=== PATIENT | female | born 1955 | race Caucasian/White ===

== ENCOUNTER → 2019-07-11 09:37 | Outpatient (BNVA) | payer MEDICARE, BC, SELFPAY | PROVIDERS: Family Provider Family Medicine; PCP Internal Medicine Medical Oncology; Visit Provider Internal Medicine Medical Oncology | DX: E83.119 Hemochromatosis, unspecified (principal) | CPT/HCPCS: 85025 ==

== ENCOUNTER 2019-07-12 13:52 | Outpatient (CLI) | payer MEDICARE, BC, SELFPAY | END 2019-07-12 13:53 | disposition home or self-care (01) | LOC: ONCMED 13:52 | PROVIDERS: Family Provider Family Medicine; PCP Nurse Practitioner Family; Visit Provider Internal Medicine Medical Oncology | DX: E83.119 Hemochromatosis, unspecified (principal) | CPT/HCPCS: 99195; 99211 ==

== ENCOUNTER → 2019-08-07 10:24 | Outpatient (BNVA) | payer MEDICARE, BC, SELFPAY | PROVIDERS: Family Provider Family Medicine; PCP Nurse Practitioner Family; Visit Provider Internal Medicine Medical Oncology | DX: Z51.81 Encounter for therapeutic drug level monitoring (principal); E78.5 Hyperlipidemia, unspecified; E83.119 Hemochromatosis, unspecified | CPT/HCPCS: 80053; 80061; 82728; 83540; 83550; 85025 ==

== ENCOUNTER 2019-08-09 13:34 | Outpatient (CLI) | payer MEDICARE, BC, SELFPAY | END 2019-08-09 13:35 | disposition home or self-care (01) | LOC: ONCMED 13:34 | PROVIDERS: Family Provider Family Medicine; PCP Nurse Practitioner Family; Visit Provider Internal Medicine Medical Oncology | DX: E83.119 Hemochromatosis, unspecified (principal) | CPT/HCPCS: 99195; 99211 ==

== ENCOUNTER → 2019-08-17 11:48 | Outpatient (BNVA) | payer MEDICARE, BC, SELFPAY | PROVIDERS: Family Provider Family Medicine; PCP Nurse Practitioner Family; Visit Provider Emergency Medicine | DX: M79.644 Pain in right finger(s) (principal) | CPT/HCPCS: 73130 ==

== ENCOUNTER → 2019-09-04 10:08 | Outpatient (BNVA) | payer MEDICARE, BC, SELFPAY | PROVIDERS: Family Provider Family Medicine; PCP Nurse Practitioner Family; Visit Provider Family Medicine | DX: E83.119 Hemochromatosis, unspecified (principal) | CPT/HCPCS: 82728; 83540; 83550; 85025 ==

== ENCOUNTER 2019-09-06 13:39 | Outpatient (CLI) | payer MEDICARE, BC, SELFPAY | END 2019-09-06 13:40 | disposition home or self-care (01) | LOC: ONCMED 13:43 | PROVIDERS: Family Provider Family Medicine; PCP Nurse Practitioner Family; Visit Provider Internal Medicine Medical Oncology | DX: E83.110 Hereditary hemochromatosis (principal) | CPT/HCPCS: 99195; 99211 ==

== ENCOUNTER → 2019-10-24 09:36 | Outpatient (BNVA) | payer MEDICARE, BC, SELFPAY | PROVIDERS: Family Provider Family Medicine; PCP Nurse Practitioner Family; Visit Provider Family Medicine | DX: E87.1 Hypo-osmolality and hyponatremia (principal) | CPT/HCPCS: 80048; 82533; 83935; 84300; 84439; 84443 ==

== ENCOUNTER → 2019-11-01 10:36 | Outpatient (BNVA) | payer MEDICARE, BC, SELFPAY | PROVIDERS: Family Provider Family Medicine; PCP Nurse Practitioner Family; Visit Provider Nurse Practitioner Family | DX: E87.1 Hypo-osmolality and hyponatremia (principal) | CPT/HCPCS: 80061; 83883; 84155; 84165 ==

== ENCOUNTER → 2019-11-06 10:37 | Outpatient (BNVA) | payer MEDICARE, BC, SELFPAY | PROVIDERS: Family Provider Family Medicine; PCP Nurse Practitioner Family; Referring Provider Internal Medicine Medical Oncology; Visit Provider Internal Medicine Medical Oncology | DX: E83.119 Hemochromatosis, unspecified (principal) | CPT/HCPCS: 80053; 82728; 83550; 85025 ==

== ENCOUNTER 2019-11-08 13:46 | Outpatient (CLI) | payer MEDICARE, BC, SELFPAY | END 2019-11-08 13:47 | disposition home or self-care (01) | LOC: ONCMED 13:52 | PROVIDERS: PCP Nurse Practitioner Family; Visit Provider Internal Medicine Medical Oncology | DX: E83.110 Hereditary hemochromatosis (principal); M79.7 Fibromyalgia; K21.9 Gastro-esophageal reflux disease without esophagitis; M10.9 Gout, unspecified; I10 Essential (primary) hypertension; M19.90 Unspecified osteoarthritis, unspecified site | CPT/HCPCS: 99195; 99211 ==

== ENCOUNTER → 2020-01-10 10:39 | Outpatient (BNVA) | payer MEDICARE, BC, SELFPAY | PROVIDERS: PCP Nurse Practitioner Family; Referring Provider Internal Medicine Medical Oncology; Visit Provider Internal Medicine Medical Oncology | DX: E83.119 Hemochromatosis, unspecified (principal) | CPT/HCPCS: 80053; 82728; 83550; 85025 ==

== ENCOUNTER 2020-01-11 13:44 | Outpatient (CLI) | payer MEDICARE, BC, SELFPAY ==
--- NOTE | 2020-01-11 17:16 | ONC FU_ITS ---
Dr. Rock Patient Follow-Up Note Patient: Soumya Freed Unit #: [id number]: 1955 Dicatated By: Jorge Rock M.D.Date of Visit:Jan 11, 2020 Onc Med Follow-up/Prog Note Chief Complaint: Hemochromatosis. History of Present Illness: This is a 64 year-old woman who with hereditary hemochromatosis. She had serum iron studies in March 2018 after her brother and her sister had been diagnosed with hereditary hemochromatosis. Her serum iron was found to be elevated at 206 mcg/dL. Her transferrin saturation calculated to 74%. She was seen here by Dr. Peña on 04/14/2018. 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 I had seen her initially on 05/09/2018. She then started on phlebotomy program, initially on an every 2 month schedule. As of her follow-up visit on 11/03/2018 her serum ferritin was still elevated at 275 ng/mL, and at that point I did have her increase the frequency of her phlebotomies to monthly. Her other medical illnesses include hypertension, GERD, fibromyalgia, degenerative arthritis, and gout. She also has a diagnosis of cluster headaches. She is a nonsmoker. INTERIM HISTORY: As of October 2019 her repeat transferrin saturation was down to 52.9% and her ferritin had decreased to 64 ng/mL. At that point she did stop phlebotomies. She is seen for a scheduled followup visit. She has been feeling okay. She says her energy is getting better. She does have limited activity due to chronic pain in the back and right hip. She is able to do light work. ECOG score is 1. She has good appetite. She has not had fever. She sometimes has hot flashes at night. Her main complaint is that she has been having cluster headaches. She has been seeing a physician in [place] and she has been on treatment with injectable medication. She has had pain in her legs associated with the injection, but it has improved the headaches. She has no shortness of breath, cough, or chest pain. She has no GI/ complaints other than her stools tend to fluctuate between runny and hard. She has no focal neurologic symptoms. Medications: Acetaminophen-Codeine 1 - 2 (300-60 mg) Tablet Oral q 4 to 6 hours PRN, ALPRAZolam 1 Tablet (of 0.5 mg) Oral b.i.d., Cetirizine HCl 1 Tablet (of 10 mg) Oral daily, Colestipol HCl 1 Tablet (of 1 G) Oral b.i.d., Dicyclomine HCl 1 Tablet (of 20 mg) Oral four times a day, Esomeprazole Magnesium 1 Capsule (of 40 mg) Capsule Delayed Release Oral daily, Excedrin Extra Strength 1 Capsule (of 250-250-65 mg) Tablet Oral PRN, Losartan Potassium 1 Tablet (of 50 mg) Oral daily, Meloxicam 1 Tablet (of 15 mg) Oral daily, Simvastatin 1 Tablet (of 40 mg) Oral daily, Venlafaxine HCl ER 1 Tablet (of 75 mg) Tablet SR 24 HR Oral daily, Verapamil HCl ER 1 Capsule (of 240 mg) Capsule SR 24 HR Oral daily Allergies: Morphine Sulfate Review of Systems: Constitutional - She is feeling okay Her energy is getting better. She is able to do light work. Appetite is good and weight is stable. No fever or night sweats. She sometimes has hot flashes at night. ECOG score is 1, ENMT - She has a little sinus drainage. No mouth sores. She has pain in her right ear and throat with her heacaches. No difficulty swallowing, Hematologic/Lymphatic - No abnormal bruising or bleeding, Respiratory - No shortness of breath. No cough. No pleuritic pain or hemoptysis, Cardiovascular - No angina pain. No palpitations, Gastrointestinal - No nausea or vomiting. Her acid reflux is adequately managed with medication. Her stools are either runny or hard. No blood in the stool or black stools, Genitourinary (F) - No dysuria or hematuria. No urinary frequency. No urgency or incontinence, Musculoskeletal - She has back pain, and she also has pain in her right leg, Integumentary - No skin rash, Neurologic - She has cluster headaches. No dizziness. No numbness or tingling. No other focal neurologic symptoms, Psychiatric - Her anxiety/depression is adequately managed with medication. No insomnia. Vital Signs: Performed on Jan 11, 2020 14:06 Height - 63.00 in Weight - 144.8 lbs (LOW) BSA - 1.69 sq.m BMI - 25.65 Temperature - 98.2 F (LOW) Pulse - 58 /min (LOW) Respiration - 24 /min BP - 190/74 mm(hg) (HIGH) O2 Sat - 98 % Pain - 2 Physical Examination: Constitutional - She looks pretty good generally, Eyes - Sclerae nonicteric. Conjunctivae clear, ENMT - No lesions noted in the oral cavity, Hematologic/Lymphatic - No cervical, clavicular, or axillary adenopathy, Respiratory - Lungs are clear with good air movement bilaterally, Cardiovascular - Heart rhythm is regular. There is no murmur, gallop, or rub noted, Abdomen - Soft and non-tender. Liver and spleen are not enlarged. There is no abdominal mass or ascites noted and there is no inguinal adenopathy, Extremities - No edema, Neurologic - No focal neurologic deficits noted. Lab/Imaging: CBC shows hemoglobin 14.4 g, white blood cell count 5800, and platelet count 252,000. Comprehensive metabolic profile is unremarkable. The serum iron studies show elevated transferrin saturation at 82.%. The ferritin has increased to 84 ng/mL. Impression: 1. Patient with hereditary hemochromatosis. 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 2. She had just mildly elevated transferrin saturation and serum ferritin at initial diagnosis. Her other medical illnesses include: 3. Hypertension. 4. GERD. 5. Fibromyalgia. 6. Degenerative arthritis. 7. Gout. In April 2018 she began on a phlebotomy program, intially on an every 2 month schedue. She has tolerated it well, but as of October 2018 there was just a modest decline in her serum ferritin level, to 275 ng/mL compared to a baseline level of 336 ng/mL. Her transferrin saturation was basically stable. At that point I had increased the frequency of her phlebotomies to monthly, but she tolerated it poorly. Her phlebotomies were then changed to 1/2 unit monthly, and she was then able to tolerate it much better. As of October 2019 her transferrin saturation had decreased to 52.9% and her ferritin was down to 64 ng/mL. She had then stopped phlebotomies. Her transferrin saturation and ferritin have now both increased. Plan: She will restart treatment with 1/2 unit phlebotomy monthly. I will see her again with repeat serum iron studies and ferritin in 6 months. Signed By: Jorge Rock M.D. <<Signature on File>>
== END 2020-01-11 13:45 | disposition home or self-care (01) ==
LOC: ONCMED 13:50
PROVIDERS: PCP Nurse Practitioner Family; Visit Provider Internal Medicine Medical Oncology
DX: E83.110 Hereditary hemochromatosis; I10 Essential (primary) hypertension; K21.9 Gastro-esophageal reflux disease without esophagitis; M79.7 Fibromyalgia; M19.90 Unspecified osteoarthritis, unspecified site; M10.9 Gout, unspecified
CPT/HCPCS: 36415; 99195; 99214

== ENCOUNTER → 2020-02-06 09:02 | Outpatient (BNVA) | payer MEDICARE, BC, SELFPAY | PROVIDERS: PCP Nurse Practitioner Family; Referring Provider Internal Medicine; Visit Provider Internal Medicine | DX: E87.1 Hypo-osmolality and hyponatremia (principal) | CPT/HCPCS: 80048; 80069; 82533; 83930; 83935; 84300; 84439; 84443 ==

== ENCOUNTER → 2020-02-12 10:36 | Outpatient (BNVA) | payer MEDICARE, BC, SELFPAY | PROVIDERS: PCP Nurse Practitioner Family; Visit Provider Internal Medicine Medical Oncology | DX: E83.119 Hemochromatosis, unspecified (principal) | CPT/HCPCS: 82728; 83550; 85025 ==

== ENCOUNTER 2020-02-13 14:01 | Outpatient (CLI) | payer MEDICARE, BC, SELFPAY | END 2020-02-13 14:02 | disposition home or self-care (01) | LOC: ONCMED 14:04 | PROVIDERS: PCP Nurse Practitioner Family; Visit Provider Internal Medicine Medical Oncology | DX: E83.110 Hereditary hemochromatosis (principal) | CPT/HCPCS: 99195 ==

== ENCOUNTER → 2020-03-13 09:02 | Outpatient (BNVA) | payer MEDICARE, BC, SELFPAY | PROVIDERS: PCP Nurse Practitioner Family; Referring Provider Internal Medicine Medical Oncology; Visit Provider Internal Medicine Medical Oncology | DX: E83.119 Hemochromatosis, unspecified (principal) | CPT/HCPCS: 85025 ==

== ENCOUNTER 2020-03-14 13:53 | Outpatient (CLI) | payer MEDICARE, BC, SELFPAY | END 2020-03-14 13:54 | disposition home or self-care (01) | PROVIDERS: PCP Nurse Practitioner Family; Visit Provider Internal Medicine Medical Oncology | DX: E83.110 Hereditary hemochromatosis (principal) | CPT/HCPCS: 99195 ==

== ENCOUNTER → 2020-04-22 09:03 | Outpatient (BNVA) | payer MEDICARE, BC, SELFPAY | PROVIDERS: PCP Nurse Practitioner Family; Referring Provider Internal Medicine Medical Oncology; Visit Provider Internal Medicine Medical Oncology | DX: E83.119 Hemochromatosis, unspecified (principal) | CPT/HCPCS: 85007; 85027 ==

== ENCOUNTER → 2020-05-08 09:25 | Outpatient (BNVA) | payer MEDICARE, BC, SELFPAY | PROVIDERS: PCP Nurse Practitioner Family; Visit Provider Internal Medicine Medical Oncology | DX: E83.110 Hereditary hemochromatosis (principal) | CPT/HCPCS: 85025 ==

== ENCOUNTER 2020-05-09 13:50 | Outpatient (CLI) | payer MEDICARE, BC, SELFPAY | END 2020-05-09 13:51 | disposition home or self-care (01) | LOC: ONCMED 13:55 | PROVIDERS: PCP Nurse Practitioner Family; Visit Provider Internal Medicine Medical Oncology | DX: E83.110 Hereditary hemochromatosis (principal) | CPT/HCPCS: 99195 ==

== ENCOUNTER → 2020-06-05 08:56 | Outpatient (BNVA) | payer MEDICARE, BC, SELFPAY | PROVIDERS: PCP Nurse Practitioner Family; Referring Provider Internal Medicine Medical Oncology; Visit Provider Internal Medicine Medical Oncology | DX: E83.110 Hereditary hemochromatosis (principal) | CPT/HCPCS: 85025 ==

== ENCOUNTER 2020-06-06 13:41 | Outpatient (CLI) | payer MEDICARE, BC, SELFPAY | END 2020-06-06 13:42 | disposition home or self-care (01) | LOC: ONCMED 13:46 | PROVIDERS: PCP Nurse Practitioner Family; Visit Provider Internal Medicine Medical Oncology | DX: E83.110 Hereditary hemochromatosis (principal) | CPT/HCPCS: 99195 ==

== ENCOUNTER → 2020-06-25 09:10 | Outpatient (BNVA) | payer MEDICARE, BC, SELFPAY | PROVIDERS: PCP Nurse Practitioner Family; Referring Provider Internal Medicine; Visit Provider Internal Medicine | DX: E87.1 Hypo-osmolality and hyponatremia (principal) | CPT/HCPCS: 80069; 83930; 83935; 84300 ==

== ENCOUNTER → 2020-07-10 09:11 | Outpatient (BNVA) | payer MEDICARE, BC, SELFPAY | PROVIDERS: PCP Nurse Practitioner Family; Referring Provider Internal Medicine Medical Oncology; Visit Provider Internal Medicine Medical Oncology | DX: E83.110 Hereditary hemochromatosis (principal) | CPT/HCPCS: 85025 ==

== ENCOUNTER 2020-07-11 13:40 | Outpatient (CLI) | payer MEDICARE, BC, SELFPAY ==
--- NOTE | 2020-07-12 15:38 | ONC FU_ITS ---
Dr. Rock Patient Follow-Up Note Patient: Soumya Freed Unit #: [id number]: 1955 Dicatated By: Jorge Rock M.D.Date of Visit:Jul 11, 2020 Onc Med Follow-up/Prog Note Chief Complaint: Hemochromatosis. History of Present Illness: This is a 64 year-old woman who with hereditary hemochromatosis. She had serum iron studies in March 2018 after her brother and her sister had been diagnosed with hereditary hemochromatosis. Her serum iron was found to be elevated at 206 mcg/dL. Her transferrin saturation calculated to 74%. She was seen here by Dr. Peña on 04/14/2018. 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 I had seen her initially on 05/09/2018. She then started on phlebotomy program, initially on an every 2 month schedule. As of her follow-up visit on 11/03/2018 her serum ferritin was still elevated at 275 ng/mL, and at that point I did have her increase the frequency of her phlebotomies to monthly. Her other medical illnesses include hypertension, GERD, fibromyalgia, degenerative arthritis, and gout. She also has a diagnosis of cluster headaches. She is a nonsmoker. INTERIM HISTORY: As of October 2019 her repeat transferrin saturation was down to 52.9% and her ferritin had decreased to 64 ng/mL, and I did stop her phlebotomies. However, in December 2019 she restarted 1/2 unit phlebotomies monthly with her transferrin saturation increased to 82% and her serum ferritin increased to 84 ng/mL. She is seen for a scheduled followup visit. She has not been feeling good. She says her energy has been horrible and she has been tired all the time. She is still doing some light work. ECOG score is 1. She has good appetite. She has not had fever. She occasionally has hot flashes. Her main complaint otherwise is that her pain is getting worse. She indicates that she has had to previous back surgeries and she had a right total hip arthroplasty 2 years ago. She is always had s a little back pain, but that has gotten significantly worse, and she also has been having pain intermittently in her right groin area. She was having headaches, but does have improved. She does not complain of shortness of breath, cough, or chest pain. She has ongoing problems with constipation. She is scheduled to see her artificial breast fabricator next month. Bladder function has been okay. She has no focal neurologic symptoms. Medications: Acetaminophen-Codeine 1 - 2 (300-60 mg) Tablet Oral q 4 to 6 hours PRN, ALPRAZolam 1 Tablet (of 0.5 mg) Oral b.i.d., Cetirizine HCl 1 Tablet (of 10 mg) Oral daily, Colestipol HCl 1 Tablet (of 1 G) Oral b.i.d., Dicyclomine HCl 1 Tablet (of 20 mg) Oral four times a day, Esomeprazole Magnesium 1 Capsule (of 40 mg) Capsule Delayed Release Oral daily, Excedrin Extra Strength 1 Capsule (of 250-250-65 mg) Tablet Oral PRN, Losartan Potassium 1 Tablet (of 50 mg) Oral daily, Meloxicam 1 Tablet (of 15 mg) Oral daily, Simvastatin 1 Tablet (of 40 mg) Oral daily, Venlafaxine HCl ER 1 Tablet (of 75 mg) Tablet SR 24 HR Oral daily, Verapamil HCl ER 1 Capsule (of 240 mg) Capsule SR 24 HR Oral daily Allergies: Morphine Sulfate Vital Signs: Performed on Jul 11, 2020 14:17 Height - 63.00 in Weight - 156 lbs (HIGH) BSA - 1.74 sq.m BMI - 27.63 Temperature - 98.2 F (LOW) Pulse - 74 /min Respiration - 16 /min BP - 176/69 mm(hg) (HIGH) O2 Sat - 99 % Pain - 6 Physical Examination: Constitutional - She looks pretty good generally, Eyes - Sclerae nonicteric. Conjunctivae clear, ENMT - No lesions noted in the oral cavity, Hematologic/Lymphatic - No cervical, clavicular, or axillary adenopathy, Respiratory - Lungs are clear with good air movement bilaterally, Cardiovascular - Heart rhythm is regular. There is no murmur, gallop, or rub noted, Abdomen - Soft and non-tender. Liver and spleen are not enlarged. There is no abdominal mass or ascites noted and there is no inguinal adenopathy, Extremities - No edema, Neurologic - No focal neurologic deficits noted. Lab/Imaging: Test performed on Jul 10, 2020 08:17 WBC 6.1 10^9/L RBC 4.06 10^12/L HGB 10.4 g/dL HCT 34.1 % MCV 84 fl MCH 25.6 pg MCHC 30.5 g/dL RDW 12.8 % Platelet Count 285 10^9/L Neutrophils (Gran) 2.6 10^9/L Lymphocytes 2.6 10^9/L Monocytes 0.6 10^9/L Eosinophils 0.2 10^9/L Basophils 0.1 10^9/L Problem List: 1. Patient with hereditary hemochromatosis. 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 She had just mildly elevated transferrin saturation and serum ferritin at initial diagnosis. 2. She began on a phlebotomy program in April 2018. 3. Hypertension. 4. GERD. 5. Fibromyalgia. 6. Degenerative arthritis. 7. Gout. Problems Addressed with this Encounter and Plan: 1. Patient with hereditary hemochromatosis. 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 She had just mildly elevated transferrin saturation and serum ferritin at initial diagnosis. In December 2019 she had restarted 1/2 unit phlebotomies monthly due to an increase in her transferrin saturation and ferritin level. She comes in now feeling significantly more fatigued. She has become mildly anemic. Her serum iron studies were not done, but I suspect that she has become iron deficient, as there has also been a decrease in her MCV down to the low normal range. As such, I will have her start taking a multivitamin with iron. I will see her again with repeat CBC and serum iron studies in 3 months. 2. She has ongoing problems with constipation. She is scheduled to see her artificial breast fabricator next month. In the meantime, she is given instructions to try senna/docusate 2 tablets twice daily and to use her lactulose as needed if she has had no bowel movement in 3 days. Signed By: Jorge Rock M.D. <<Signature on File>>
== END 2020-07-11 13:41 | disposition home or self-care (01) ==
LOC: ONCMED 13:45
PROVIDERS: PCP Nurse Practitioner Family; Visit Provider Internal Medicine Medical Oncology
DX: E83.110 Hereditary hemochromatosis (principal); R53.83 Other fatigue; D64.9 Anemia, unspecified; K59.00 Constipation, unspecified
CPT/HCPCS: 99214

== ENCOUNTER → 2020-08-09 08:43 | Outpatient (BNVA) | payer MEDICARE, BC, SELFPAY | PROVIDERS: PCP Nurse Practitioner Family; Referring Provider Internal Medicine; Visit Provider Internal Medicine | DX: E87.1 Hypo-osmolality and hyponatremia (principal) | CPT/HCPCS: 80069 ==

== ENCOUNTER → 2020-10-17 08:42 | Outpatient (BNVA) | payer MEDICARE, BC, SELFPAY | PROVIDERS: PCP Nurse Practitioner Family; Visit Provider Internal Medicine Medical Oncology | DX: E83.110 Hereditary hemochromatosis (principal) | CPT/HCPCS: 80053; 82728; 83550; 85025 ==

== ENCOUNTER 2020-10-23 10:55 | Outpatient (CLI) | payer MEDICARE, BC, SELFPAY ==
--- NOTE | 2020-11-04 22:02 | ONC FU_ITS ---
[facility] Patient Note Patient: Soumya Freed Unit #: [id number]: 1955 Dictated By: Lida ScottDate of Visit: October 23, 2020 Onc MED Follow-Up/Prog Note Chief Complaint: Hemochromatosis. History of Present Illness: Ms Freed is a 64 year-old woman who with hereditary hemochromatosis. She had serum iron studies in March 2018 after her brother and her sister had been diagnosed with hereditary hemochromatosis. Her serum iron was found to be elevated at 206 mcg/dL. Her transferrin saturation calculated to 74%. She was seen here by Dr. Peña on 04/14/2018. 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 Dr Rock had seen her initially on 05/09/2018. She then started on phlebotomy program, initially on an every 2 month schedule. As of her follow-up visit on 11/03/2018 her serum ferritin was still elevated at 275 ng/mL, and at that point I did have her increase the frequency of her phlebotomies to monthly. Her other medical illnesses include hypertension, GERD, fibromyalgia, degenerative arthritis, and gout. She also has a diagnosis of cluster headaches. She is a nonsmoker. INTERIM HISTORY: As of October 2019 her repeat transferrin saturation was down to 52.9% and her ferritin had decreased to 64 ng/mL, and Dr Rock did stop her phlebotomies. However, in December 2019 she restarted 1/2 unit phlebotomies monthly with her transferrin saturation increased to 82% and her serum ferritin increased to 84 ng/mL. Mrs Freed is here today for follow-up. She states overall she is doing well. She has started watching her diet a lot close. She states that she is doing a gluten and lactose-free diet and has been for approximately 2 weeks and states that she is already feeling much better. She reports she had her second Covid vaccine and had diarrhea for 48 hours but after that it resolved and she is had no other issues. She denies any fever or chills. She is had no worsening of her night sweats. She states she feels good overall. She denies any mouth sores, sore throat or difficulty swallowing. She said no shortness of breath orthopnea. She denies cough and hemoptysis. She denies any nausea or vomiting. Her bowel and bladder are normal for her. She denies any peripheral neuropathy. Her ECOG is 1. Past Medical History: Degenerative arthritis Fibromyalgia Gastroesophageal reflux disease Gout Hypertension Past Surgical History: Appendectomy Bladder sling Cholecystectomy Hysterectomy Laminectomy Thumb repair Covid vaccine #2 in 2020 Covid vaccine #1 in 2020 Right hip relacement in 2019 Allergies: Morphine Sulfate Medications: Acetaminophen-Codeine 1 - 2 (300-60 mg) Tablet Oral q 4 to 6 hours PRN ALPRAZolam 1 Tablet (of 0.5 mg) Oral b.i.d. Bystolic (5 mg) Tablet Oral daily Cetirizine HCl 1 Tablet (of 10 mg) Oral daily Colestipol HCl 1 Tablet (of 1 G) Oral b.i.d. Dicyclomine HCl 1 Tablet (of 20 mg) Oral four times a day Esomeprazole Magnesium 1 Capsule (of 40 mg) Capsule Delayed Release Oral daily Excedrin Extra Strength 1 Capsule (of 250-250-65 mg) Tablet Oral PRN Lisinopril (20 mg) Tablet Oral b.i.d. Meloxicam 1 Tablet (of 15 mg) Oral daily Simvastatin 1 Tablet (of 40 mg) Oral daily Family History: Ms. Freed's mother at age 91: congestive heart failure, and breast cancer. Ms. Freed's father at age 84: prostate cancer. Ms. Freed has 2 brothers: 1 alive, 1 . Ms. Freed's first brother's hemachromatosis. Another brother's renal failure. She has 3 sisters: 3 alive. Ms. Freed's first sister's heart disease. Social History: Ms. Freed is and she is a disabled. Ms. Freed has never smoked. She has no history of drinking. Review Of Symptoms: <See Above> Vital Signs: Performed on October 23, 2020 12:35 Height - 63.00 in Weight - 147.6 lbs (LOW) BSA - 1.70 sq.m BMI - 26.15 Temperature - 97.7 F (LOW) Pulse - 53 /min (LOW) Respiration - 18 /min BP - 145/72 mm(hg) (HIGH) O2 Sat - 97 % Pain - 7 Fatigue - 7,1 - No physically strenuous activity, but ambulatory and able to carry out light or sedentary work (e.g. office work, light house work). (ECOG) Physical Examination: Constitutional Alert, oriented, no acute distress. Skin pink, warm and dry. Head Normocephalic; atraumatic. Eyes Conjunctivae and sclerae are clear and without icterus. Pupils are reactive and equal. Neck Supple without masses or thyromegaly. No jugular venous distension. Hematologic/Lymphatic No petechiae or purpura. No tender or palpable lymph nodes in the cervical or supraclavicular areas. Respiratory Lungs are clear to auscultation without rhonchi or wheezing. Cardiovascular Regular rate and rhythm of heart without murmurs,clicks, gallops or rubs. Abdomen Non-tender, non-distended, no masses or ascites. Good bowel sounds noted in all quads. No guarding or rebound tenderness. No pulsatile masses. Back/Spine Non-tender to palpation. Extremities No visible deformities, no cyanosis, clubbing or edema. Musculoskeletal No tenderness or swelling, normal range of motion without obvious weakness. Integumentary No rashes or lesions. Neurologic No sensory or motor deficits, normal cerebellar function, normal gait. Psychiatric Alert and oriented times three. Coherent speech. Verbalizes understanding of our discussions today. Laboratory:Test performed on Oct 17, 2020 08:42 Ferritin 14 ng/mL % Iron Saturation 8.7 % Glucose 280 mg/dL BUN 6 mg/dL Iron, Total 27 mcg/dL Creatinine 0.7 mg/dL TIBC 308 mcg/dL Cr Clearance (Est) 83.5600 mL/min Sodium 135 mmol/L Potassium 4.1 mmol/L Chloride 100 mmol/L CO2 24 mmol/L Calcium 8.8 mg/dL Protein, Total 6.1 g/dL Albumin 4.1 g/dL Globulin 2.0 g/dL Bilirubin, Total 0.2 mg/dL Alkaline Phosphatase 66 IU/L AST (SGOT) 12 IU/L ALT (SGPT) 7 IU/L WBC 4.7 10^9/L RBC 4.74 10^12/L HGB 11.0 g/dL HCT 36.6 % MCV 77.2 fl MCH 23.2 pg MCHC 30.1 g/dL RDW 16.3 % Platelet Count 246 10^9/L MPV 12.2 fL Neutrophils (Gran) 2.57 10^9/L Lymphocytes 1.6 10^9/L Monocytes 0.4 10^9/L Eosinophils 0.1 10^9/L Basophils 0.0 10^9/L Manual Lymphocytes 34.0 % Manual Monocytes 7.5 % Manual Eosinophils 2.8 % Manual Basophils 0.6 % Impression: 1. Patient with hereditary hemochromatosis. 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 She had just mildly elevated transferrin saturation and serum ferritin at initial diagnosis. 2. She began on a phlebotomy program in April 2018. 3. Hypertension. 4. GERD. 5. Fibromyalgia. 6. Degenerative arthritis. 7. Gout. Plan/Problems Addressed at this Visit: 1. Patient with hereditary hemochromatosis. 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 She had just mildly elevated transferrin saturation and serum ferritin at initial diagnosis. In December 2019 she had restarted 1/2 unit phlebotomies monthly due to an increase in her transferrin saturation and ferritin level. She presented for followup feeling significantly more fatigued. She had become mildly anemic. Her serum iron studies were not done, but Dr Rock suspected that she has become iron deficient, as there has also been a decrease in her MCV down to the low normal range. He had her start on multivitamin with iron and stopped her phlebotimies. A. Her hemoglobin has improved from her labs on October 17 2020 to 11 today from 10.4. We did review her labs from today in detail and a copy was given to her. WBC 4.7, hemoglobin 11.0, platelets 247,000, ANC is 2600. Potassium 4.1 creatinine 0.7 random glucose 280-she follows with her primary care for this. LFTs were normal. Her MCV was 77.4. Potassium was 4.1. Iron saturation was 8.7% iron level was 27. B. Mr. Mrs. Freed were requesting that she be treated with B12 injections. I did explain to them that she would need a B12 level and be documented B12 deficiency for this to be covered by insurance. She was advised she could try B12 vitamin [id number] if she felt that that would help. C. We will also check her thyroid functions today given that she has fatigue. It could be related to her iron deficiency however hemoglobin is improving. Her indicates that she is tired but from her description she has been pretty active overall. She is not having leg cramps or shortness of breath. She denies any pica symptoms. She is again showing improvement in her hemoglobin at 11.0 compared to 10.4 at her last visit. D. She is currently scheduled for monthly CBCs. We will plan that we can watch her hemoglobin. E. We will plan to see her back in 3 months with CBC CMP and iron studies. I did request a B12 along with a thyroid studies for today. F. She was instructed to contact us in interim should questions or problems arise. Signed By: Lida Scott-, CNP Jorge Rock MD <<Signature on File>>
== END 2020-10-23 10:56 | disposition home or self-care (01) ==
LOC: ONCMED 11:01
PROVIDERS: PCP Nurse Practitioner Family; Visit Provider Nurse Practitioner
DX: E83.110 Hereditary hemochromatosis (principal); I10 Essential (primary) hypertension; K21.9 Gastro-esophageal reflux disease without esophagitis; M79.7 Fibromyalgia; M19.90 Unspecified osteoarthritis, unspecified site; M10.9 Gout, unspecified; Z79.899 Other long term (current) drug therapy
CPT/HCPCS: 99214

== ENCOUNTER → 2021-02-04 11:12 | Outpatient (BNVA) | payer MEDICARE, BC, SELFPAY | PROVIDERS: PCP Nurse Practitioner Family; Visit Provider Internal Medicine Medical Oncology | DX: E83.110 Hereditary hemochromatosis (principal) | CPT/HCPCS: 80053; 82728; 83550; 85025 ==

== ENCOUNTER 2021-02-05 12:01 | Outpatient (CLI) | payer MEDICARE, BC, SELFPAY ==
--- NOTE | 2021-02-05 13:52 | ONC FU_ITS ---
Dr. Rock Patient Follow-Up Note Patient: Soumya Freed Unit #: [id number]: 1955 Dicatated By: Jorge Rock M.D.Date of Visit:Feb 05, 2021 Onc Med Follow-up/Prog Note Chief Complaint: Hemochromatosis. History of Present Illness: This is a 65 year-old woman with hereditary hemochromatosis. She had serum iron studies in March 2018 after her brother and her sister had been diagnosed with hereditary hemochromatosis. Her serum iron was found to be elevated at 206 mcg/dL. Her transferrin saturation calculated to 74%. She was seen here by Dr. Peña on 04/14/2018. 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 I had seen her initially on 05/09/2018. She then started on phlebotomy program, initially on an every 2 month schedule. As of her follow-up visit on 11/03/2018 her serum ferritin was still elevated at 275 ng/mL, and at that point I did have her increase the frequency of her phlebotomies to monthly. Her other medical illnesses include hypertension, GERD, fibromyalgia, degenerative arthritis, and gout. She also has a diagnosis of cluster headaches. She is a nonsmoker. INTERIM HISTORY: As of October 2019 her repeat transferrin saturation was down to 52.9% and her ferritin had decreased to 64 ng/mL, and I did stop her phlebotomies. However, in December 2019 she restarted 1/2 unit phlebotomies monthly with her transferrin saturation increased to 82% and her serum ferritin increased to 84 ng/mL. As of her follow-up visit in June 2020 she actually had become iron deficient with her hemoglobin mildly decreased at 10.4 g. At that point she was recommended to start taking a multiple vitamin with iron. She is seen for a scheduled followup visit. She continues to complain that her energy is 0 to none. She is doing housework. ECOG score is 1. She also complains that she has no appetite and she also has been on a variety of dietary restrictions due to suspected food allergies. Her weight has dropped 18 pounds. She has not had fever. She does have some hot flashes/sweating. She says her breathing is pretty good. She does not complain of cough and she has not been having chest pain. She does report having some nausea. Her acid reflux is adequately managed with medication. She had been having constipation, but her bowel function lately has been adequate with prune juice. She complains that her urination is slow. She has chronic back pain. She had been having migraine headaches, but those have improved with some type of homeopathic hearing. She does not complain of dizziness. She has some numbness in both index fingers. She has no other focal neurologic symptoms. Medications: Acetaminophen-Codeine 1 - 2 (300-60 mg) Tablet Oral q 4 to 6 hours PRN, ALPRAZolam 1 Tablet (of 0.5 mg) Oral b.i.d., Bystolic (5 mg) Tablet Oral daily, Cetirizine HCl 1 Tablet (of 10 mg) Oral daily, Colestipol HCl 1 Tablet (of 1 G) Oral b.i.d., Dicyclomine HCl 1 Tablet (of 20 mg) Oral four times a day, Esomeprazole Magnesium 1 Capsule (of 40 mg) Capsule Delayed Release Oral daily, Excedrin Extra Strength 1 Capsule (of 250-250-65 mg) Tablet Oral PRN, Lisinopril (20 mg) Tablet Oral b.i.d., Meloxicam 1 Tablet (of 15 mg) Oral daily, Simvastatin 1 Tablet (of 40 mg) Oral daily Allergies: Morphine Sulfate Vital Signs: Weight is 138 pounds. Blood pressure 156/67, pulse 51, respirations 18, temp 96.7 degrees, oxygen saturation 93%. Physical Examination: Constitutional - She looks pretty good generally, Eyes - Sclerae nonicteric. Conjunctivae clear, ENMT - No lesions noted in the oral cavity, Hematologic/Lymphatic - No cervical, clavicular, or axillary adenopathy, Respiratory - Lungs are clear with good air movement bilaterally, Cardiovascular - Heart rhythm is regular. There is no murmur, gallop, or rub noted, Abdomen - Soft. Liver and spleen are not enlarged. There is no abdominal mass or ascites noted and there is no inguinal adenopathy, Extremities - No edema, Neurologic - No focal neurologic deficits noted. Lab/Imaging: CBC shows hemoglobin 10.9 g with hematocrit 34.4%. Red cell indices are hypochromic microcytic/microcytic with MCV 82 and MCH 26. White blood cell count is 5500 and platelet count 226,000. Comprehensive metabolic profile is unremarkable except for low sodium at 127 mmol/L. The serum iron studies show low transferrin saturation at 12.8% and the ferritin also is low at 17 ng/mL. Problem List: 1. Hereditary hemochromatosis. 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 2. Hypertension. 3. GERD. 4. Fibromyalgia. 5. Degenerative arthritis. 6. Gout. Problems Addressed with this Encounter and Plan: Patient with hereditary hemochromatosis. 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 She had just mildly elevated transferrin saturation and serum ferritin at initial diagnosis. She began on a phlebotomy program in April 2018. In December 2019 she had restarted 1/2 unit phlebotomies monthly due to an increase in her transferrin saturation and ferritin level. As of her follow-up visit in June 2020 she had become mildly anemic, and at that point she was recommended to begin a multiple vitamin with iron. She has since then remained mildly anemic. Her serum iron studies and transferrin saturation are consistent with iron deficiency. It is uncertain to what extent she may now have developed inadequate oral iron absorption, as she has also been dealing with other suspected food allergies. At least for now, she will continue on a multiple vitamin with iron, as I am concerned that she may not tolerate an oral iron supplement due to her chronic constipation. I did recommend that she try taking it twice a day. She will be scheduled for a follow-up visit in 3 months. In the meantime, at her request, I am going to order testing for alpha gal syndrome. Signed By: Jorge Rock M.D. <<Signature on File>>
== END 2021-02-05 12:02 | disposition home or self-care (01) ==
LOC: ONCMED 12:05
PROVIDERS: PCP Nurse Practitioner Family; Visit Provider Internal Medicine Medical Oncology
DX: E83.110 Hereditary hemochromatosis (principal); D64.9 Anemia, unspecified; K59.09 Other constipation
CPT/HCPCS: 99214

== ENCOUNTER → 2021-05-28 08:25 | Outpatient (BNVA) | payer MEDICARE, BC, SELFPAY | PROVIDERS: PCP Nurse Practitioner Family; Referring Provider Internal Medicine Medical Oncology; Visit Provider Internal Medicine Medical Oncology | DX: E83.110 Hereditary hemochromatosis (principal) | CPT/HCPCS: 82728; 83550; 85025 ==

== ENCOUNTER 2021-05-29 10:53 | Outpatient (CLI) | payer MEDICARE, BC, SELFPAY ==
--- NOTE | 2021-06-01 08:32 | ONC FU_ITS ---
Dr. Rock Patient Follow-Up Note Patient: Soumya Freed Unit #: [id number]: 1955 Dicatated By: Jorge Rock M.D.Date of Visit:May 29, 2021 Onc Med Follow-up/Prog Note Chief Complaint: Hemochromatosis. History of Present Illness: This is a 65 year-old woman with hereditary hemochromatosis. She had serum iron studies in March 2018 after her brother and her sister had been diagnosed with hereditary hemochromatosis. Her serum iron was found to be elevated at 206 mcg/dL. Her transferrin saturation calculated to 74%. She was seen here by Dr. Peña on 04/14/2018. 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 I had seen her initially on 05/09/2018. She then started on phlebotomy program, initially on an every 2 month schedule. As of her follow-up visit on 11/03/2018 her serum ferritin was still elevated at 275 ng/mL, and at that point I did have her increase the frequency of her phlebotomies to monthly. As of October 2019 her repeat transferrin saturation was down to 52.9% and her ferritin had decreased to 64 ng/mL, and I did stop her phlebotomies. However, in December 2019 she restarted 1/2 unit phlebotomies monthly with her transferrin saturation increased to 82% and her serum ferritin increased to 84 ng/mL. As of her follow-up visit in June 2020 she actually had become iron deficient with her hemoglobin mildly decreased at 10.4 g. At that point she was recommended to start taking a multiple vitamin with iron. Her other medical illnesses include hypertension, GERD, fibromyalgia, degenerative arthritis, and gout. She also has a diagnosis of cluster headaches. She is a nonsmoker. INTERIM HISTORY: As of her follow-up visit in January 2021 she remained mildly anemic with hemoglobin 10.9 g and with low transferrin duration and low ferritin at 12.8% and 17 ng/mL respectively. She was recommended to start an oral iron supplement. She is seen for a followup visit. She complains that she has been feeling tired, but much of that is attributable to taking care of her . Her ECOG score is 1. She says her appetite is a little better. Her weight is stable. She has not had fever. She does have sweating off and on. She has continued to take a women's multivitamin daily, but not a specific iron supplement. She has some allergy related sinus symptoms. She has not had sore mouth or throat. She does not complain of cough, and she has not been having shortness of breath or chest pain. Her bowel function has improved with dietary modifications (gluten-free and lactose-free). She has no other GI or complaints. She does have back pain, which seems to be worse when she is lying down. Her headaches have not been bothering her lately. She has just occasional dizziness. She complains that the index fingers on both hands go numb and turn purple. She does not sleep well at night. Medications: Acetaminophen-Codeine 1 - 2 (300-60 mg) Tablet Oral q 4 to 6 hours PRN, ALPRAZolam 1 Tablet (of 0.5 mg) Oral b.i.d., Bystolic (5 mg) Tablet Oral daily, Dicyclomine HCl 1 Tablet (of 20 mg) Oral four times a day, Esomeprazole Magnesium 1 Capsule (of 40 mg) Capsule Delayed Release Oral daily, Estradiol 1 Tablet (of 1 mg) Oral daily, Excedrin Extra Strength 1 Capsule (of 250-250-65 mg) Tablet Oral PRN, Lisinopril (20 mg) Tablet Oral b.i.d., Meloxicam 1 Tablet (of 15 mg) Oral daily, rOPINIRole HCl 1 Tablet (of 2 mg) Oral at bedtime, Simvastatin 1 Tablet (of 40 mg) Oral daily Allergies: Morphine Sulfate Vital Signs: Performed on May 29, 2021 11:49 Height - 63.00 in Weight - 139.8 lbs (HIGH) BSA - 1.66 sq.m BMI - 24.76 Temperature - 97.3 F (LOW) Pulse - 51 /min (LOW) Respiration - 16 /min BP - 167/82 mm(hg) (HIGH) O2 Sat - 99 % Pain - 7 Fatigue - 0 Physical Examination: Constitutional - She looks pretty good generally, Eyes - Sclerae nonicteric. Conjunctivae clear, ENMT - No lesions noted in the oral cavity, Hematologic/Lymphatic - No cervical, clavicular, or axillary adenopathy, Respiratory - Lungs are clear with good air movement bilaterally, Cardiovascular - Heart rhythm is regular. There is no murmur, gallop, or rub noted, Abdomen - Soft. Liver and spleen are not enlarged. There is no abdominal mass or ascites noted and there is no inguinal adenopathy, Extremities - No edema. She has palpable radial and ulnar pulses bilaterally, Neurologic - No focal neurologic deficits noted. Lab/Imaging: CBC shows hemoglobin 12.9 g with hematocrit 39.5%, white blood cell count 5200, and platelet count 244,000. The red cell indices are normal. The serum iron studies show transferrin saturation 23.9%. The ferritin level is 21 ng/mL. Problem List: 1. Hereditary hemochromatosis. 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 2. Hypertension. 3. GERD. 4. Fibromyalgia. 5. Degenerative arthritis. 6. Gout. Problems Addressed with this Encounter and Plan: Patient with hereditary hemochromatosis. 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 She had just mildly elevated transferrin saturation and serum ferritin at initial diagnosis. She began on a phlebotomy program in April 2018. In December 2019 she had restarted 1/2 unit phlebotomies monthly due to an increase in her transferrin saturation and ferritin level. As of her follow-up visit in June 2020 she had become mildly anemic, and at that point she was recommended to begin a multiple vitamin with iron. As of her follow-up visit in January 2021 she was still mildly anemic. She continued taking a women's multiple vitamin. At this point her hemoglobin is back up to normal range at 12.9 g. Her transferrin saturation is in the low normal range at 23.9% with ferritin also relatively low at 21 ng/mL. With her current studies in target range for her hemochromatosis, she is advised now to stop the vitamin. She will be scheduled to have laboratory studies repeated in 3 months. I will see her again in 6 months, or sooner as needed. Signed By: Jorge Rock M.D. <<Signature on File>>
== END 2021-05-29 10:54 | disposition home or self-care (01) ==
LOC: ONCMED 10:57
PROVIDERS: PCP Nurse Practitioner Family; Visit Provider Internal Medicine Medical Oncology
DX: E83.110 Hereditary hemochromatosis (principal); I10 Essential (primary) hypertension; K21.9 Gastro-esophageal reflux disease without esophagitis; M79.7 Fibromyalgia; M10.9 Gout, unspecified; G44.009 Cluster headache syndrome, unspecified, not intractable; M19.90 Unspecified osteoarthritis, unspecified site
CPT/HCPCS: 99214

== ENCOUNTER → 2021-07-03 08:28 | Outpatient (BNVA) | payer MEDICARE, BC, SELFPAY | PROVIDERS: PCP Nurse Practitioner Family; Visit Provider Internal Medicine | DX: E87.1 Hypo-osmolality and hyponatremia (principal) | CPT/HCPCS: 80069; 83935; 84300 ==

== ENCOUNTER 2022-01-14 12:05 | Oncology outpatient (recurring) (ONCR) | payer MEDICARE, BC, SELFPAY ==
[2022-01-14 12:41] LABS: Basophils % 0.7 %; Eosinophils # 0.1 10^3/uL (0.0-0.8); Eosinophils % 2.3 %; Hematocrit 37.6 % (37.0-47.0); Hemoglobin 12.7 g/dL (11.5-15.3); Lymphocytes # 2.5 10^3/uL (0.8-4.8); Lymphocytes % 40.9 %; Mean Corpuscular HGB Conc 33.8 g/dL (30.0-36.0); Mean Corpuscular Hemoglobin 28.8 pg (28.0-34.0); Mean Corpuscular Volume 85.3 fl (81-99); Mean Platelet Volume 9.9 fL (7.4-10.4); Monocytes # 0.6 10^3/uL (0.2-0.9); Monocytes % 9.8 %; Neutrophils # 2.77 10^3/uL (1.8-7.7); Neutrophils % 46.1 %; Nucleated Red Blood Cells % 0 %; Platelet Count 210 10^3/cmm (130-400); Red Blood Count 4.41 10^6/uL (4.1-5.3); Red Cell Distribution Width 12.4 % (12.1-15.1)
[2022-01-14 13:08] LABS: Alanine Aminotransferase 11 U/L (0-33); Albumin Level 4.5 g/dL (3.5-5.2); Alkaline Phosphatase 67 IU/L (35-105); Anion Gap 12.9 (5-19); Aspartate Amino Transferase 13 U/L (0-32); Blood Urea Nitrogen 16 mg/dL (8-23); Calcium 9.1 mg/dL (8.5-10.5); Carbon Dioxide 25 mmol/L (22-29); Chloride 96 mmol/L (98-107); Ferritin 17 ng/mL (15-150); Globulin 2.2 g/dL (1.3-4.6); Glomerular Filtration Rate 49.4 mL/min (90-130); Glucose 95 mg/dL (65-115); Iron 45 ug/dL (37-145); Osmolality Calculated 269 mOsm/kg (285-295); Percent Saturation 16.5 % (20-50); Potassium 4.9 mmol/L (3.5-5.1); Sodium 129 mmol/L (136-145); Total Bilirubin 0.2 mg/dL (0.15-1.2); Total Iron Binding Capacity 272 mcg/dl; Total Protein 6.7 g/dL (6.6-8.7); Unsaturated Iron Binding 227 ug/dL (112-347)
== END 2022-01-18 23:59 | disposition home or self-care (01) ==
PROVIDERS: PCP Nurse Practitioner Family; Visit Provider Internal Medicine Medical Oncology
DX: E83.110 Hereditary hemochromatosis (principal); Z79.899 Other long term (current) drug therapy
CPT/HCPCS: 36415; 80053; 82728; 83540; 83550; 85025; 99214; G0463

== ENCOUNTER → 2022-07-20 09:02 | Outpatient (BNVA) | payer MEDICARE, SELFPAY | PROVIDERS: PCP Nurse Practitioner Family; Visit Provider Internal Medicine Medical Oncology | DX: E83.110 Hereditary hemochromatosis (principal) | CPT/HCPCS: 80053; 82728; 83550; 85025 ==

== ENCOUNTER 2022-07-23 08:46 | Oncology outpatient (recurring) (ONCR) | payer MEDICARE, SELFPAY ==
[2022-07-23 10:21] VITALS: BP 136/94; PULSE 51; RESP 16; TEMP 36.2; O2SAT 99
== END 2022-08-18 23:59 | disposition home or self-care (01) ==
PROVIDERS: PCP Nurse Practitioner Family; Visit Provider Internal Medicine Medical Oncology
DX: E83.110 Hereditary hemochromatosis (principal); D64.9 Anemia, unspecified; M47.9 Spondylosis, unspecified; Z79.899 Other long term (current) drug therapy
CPT/HCPCS: 99195; 99214

== ENCOUNTER 2022-07-24 12:52 | Emergency (ER) | payer MEDICARE, SELFPAY ==
[2022-07-24] VITALS (7 sets, daily range): BP systolic 119–191; BP diastolic 50–87; PULSE 48–64; RESP 15–19; TEMP 36.2–36.4; O2SAT 92–100; BMI 24.4
--- NOTE | 2022-07-24 13:18 | ECG_ITS ---
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 Measurements Intervals [place] Rate: 53 P: 57 ME: 204 QRS: 3 QRSD: 86 T: 30 QT: 409 QTc: 387 Interpretive Statements SINUS BRADYCARDIA LOW QRS VOLTAGE IN PRECORDIAL LEADS [QRS DEFLECTION < 1.0 mV IN CHEST LEADS] No previous ECG available for comparison Electronically Signed On 07-24-2022 23:26:40 RESEARCH HYDROLOGIST by Gustabo Sierra M.D. [id number]
--- NOTE | 2022-07-24 13:24 | XR_ITS ---
WS: [id number] Portable AP upright chest, 07/24/2022 Clinical Data: chest pressure; bradycardia Comparison: None. Findings: No nodules, masses or effusions are seen. The heart is normal. The pulmonary vascularity is not increased. No pneumonia or pneumothorax is seen. The aortic arch and descending thoracic aorta s how mild tortuosity. There are clips in the right upper quadrant from a cholecystectomy. XR/XR chest 1V portable [id number] Impression: Atherosclerosis.
[2022-07-24 14:34] LABS: Basophils % 0.3 %; Eosinophils # 0.1 10^3/uL (0.0-0.8); Eosinophils % 1.4 %; Hematocrit 34.6 % (37.0-47.0); Hemoglobin 11.9 g/dL (11.5-15.3); Lymphocytes # 1.7 10^3/uL (0.8-4.8); Lymphocytes % 26.4 %; Mean Corpuscular HGB Conc 34.4 g/dL (30.0-36.0); Mean Corpuscular Hemoglobin 30.7 pg (28.0-34.0); Mean Corpuscular Volume 89.4 fl (81-99); Mean Platelet Volume 10.1 fL (7.4-10.4); Monocytes # 0.5 10^3/uL (0.2-0.9); Monocytes % 7.3 %; Neutrophils # 4.25 10^3/uL (1.8-7.7); Neutrophils % 64.4 %; Nucleated Red Blood Cells % 0 %; Platelet Count 200 10^3/cmm (130-400); Red Blood Count 3.87 10^6/uL (4.1-5.3); Red Cell Distribution Width 12.8 % (12.1-15.1); White Blood Count 6.6 10^3/uL (4.0-10.0)
[2022-07-24 14:55] LABS: Alanine Aminotransferase 7 U/L (0-33); Albumin Level 4.3 g/dL (3.5-5.2); Alkaline Phosphatase 46 U/L (35-105); Anion Gap 13.7 (5-19); Aspartate Amino Transferase 15 U/L (0-32); Blood Urea Nitrogen 13 mg/dL (8-23); Carbon Dioxide 24 mmol/L (22-29); Chloride 94 mmol/L (98-107); Globulin 2.2 g/dL (1.3-4.6); Glomerular Filtration Rate 62.3 mL/min (90-130); Glucose 92 mg/dL (65-115); Osmolality Calculated 264 mOsm/kg (285-295); Potassium 4.7 mmol/L (3.5-5.1); Sodium 127 mmol/L (136-145); Total Bilirubin 0.3 mg/dL (0.15-1.2); Total Protein 6.5 g/dL (6.6-8.7)
[2022-07-24 14:56] LABS: Troponin(5th) Baseline 12 ng/L (0-10)
--- NOTE | 2022-07-24 15:25 | ECG_ITS ---
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 Measurements Intervals [place] Rate: 54 P: 57 TN: 201 QRS: 3 QRSD: 81 T: 40 QT: 405 QTc: 384 Interpretive Statements SINUS BRADYCARDIA WITH OCCASIONAL VENTRICULAR PREMATURE COMPLEXES LOW QRS VOLTAGE IN PRECORDIAL LEADS [QRS DEFLECTION < 1.0 mV IN CHEST LEADS] Compared to ECG 07/24/2022 13:18:43 Ventricular premature complex(es) now present Electronically Signed On 07-24-2022 23:28:06 VEHICLE WASHER by Gustabo Sierra M.D. [id number]
--- NOTE | 2022-07-24 17:18 | ED_ITS ---
HPI - Chest Pain General: Chief Complaint: Chest Pain Stated Complaint: Chest pains, Abnormal EKG Time Seen by Provider: 07/24/22 17:09 Source: patient Mode of arrival: ambulatory History of Present Illness: 66-year-old female presents emergency room from local clinic. She has intermittent bradycardia evidently has been developing over the last couple of months. She had a phlebotomy treatment earlier this week she said since then she has had little chest discomfort when she is noticed her heart rate at times she reports being as low as 40s. Blood pressure is actually little bit elevated when she arrives here today. She has some mild chest discomfort which scribes a dull ache in the substernal left chest area that is not radiate at all she describes it more as a pressure or heaviness. She has had that intermittently for the last 2 months as well she has not noticed anything exacerbates or relieves it. In addition to this she has had a dull headache no vision or other focal neurologic symptoms. Patient has no k nown history of coronary artery disease or arrhythmia. Reviewing her chart she is not on any negative inotropes. MD complaint: chest pain Onset (ago): month(s) Timing of current episode: episodic Prior episodes: Yes Onset: during rest Pain location: substernal and left chest Pain radiation: none Severity: mild Quality: tightness and heaviness Relieving factors: nothing Exacerbating factors: nothing Associated symptoms: Deny abdominal pain, diaphoresis, dyspnea, fever(s), leg edema, nausea, palpitations, sense of impending doom, syncope or vomiting Treatment prior to arrival: none Review of Systems Const: Denies: fever(s), chills or diaphoresis ENMT: Denies: throat pain, ear or mastoid pain, nasal discharge or nasal congestion Card: Denies: chest pain, palpitations or syncope Resp: Denies: dyspnea, productive cough, non-productive cough or wheezing GI: Denies: abdominal pain, nausea or vomiting : Denies: flank pain, difficulty voiding, dysuria, urinary frequency or urinary urgency Skin/Breast: Denies: rash or pruritus PFSH ED PFSH: Medical History Degenerative arthritis Fibromyalgia GERD (gastroesophageal reflux disease) Gout Hereditary hemochromatosis History of diverticulitis Hypertension Lactose intolerance due to acquired lactase deficiency Osteoporosis Surgical History History of appendectomy History of bladder surgery Bladder sling History of cholecystectomy History of hysterectomy History of laminectomy History of right hip replacement 10/03/2018 History of thumb surgery Family History Other CAD (coronary artery disease) Cancer Dementia Hyperlipidemia Hypertension Stroke Denies family history of Diabetes Clotting disorder Psychiatric illness Chronic kidney disease (CKD) Suicide Anesthesia complication Bleeding disorder Lung disease Social History Smoking and tobacco status: never smoked Alcohol intake: never Female Reproductive History: Spontaneous abortions: No Physical Exam Const: GENERAL APPEARANCE: cooperative and comfortable ORIENTATION/CONSCIOUSNESS: Yes awake, Yes oriented to person, Yes oriented to place and Yes oriented to time HENMT: COMMON NORMALS: normocephalic and atraumatic HEAD & SCALP: normocephalic and atraumatic Resp: COMMON NORMALS: normal respiratory effort, No retractions, No use of accessory muscles and clear to auscultation bilaterally AUSCULTATION: clear to auscultation bilaterally Cardio: COMMON NORMALS: regular rhythm and No murmurs present (Cardio) RATE: bradycardic RHYTHM: regular rhythm GI: COMMON NORMALS: Soft to palpation and No hepatosplenomegaly present AUSCULTATION: Yes normoactive bowel sounds PALPATION: Yes Soft to palpation, No Tenderness to palpation present (GI), No Guarding due to palpation present (GI) and Yes No hepatosplenomegaly present Extremity: COMMON NORMALS: normal to inspection, capillary refill normal, no clubbing, cyanosis or edema, no calf tenderness and no pedal edema Neuro: SENSORIUM/ORIENTATION: Yes oriented to person, Yes oriented to place and Yes oriented to time Skin: COMMON NORMALS: no rashes or lesions noted GENERAL SKIN EXAM: no rashes or lesions noted Course Vital Signs: Vital signs: Vital Signs Temperature 97.4 F L 07/24/22 16:31 Pulse Rate 56 L 07/24/22 18:20 Respiratory Rate 17 07/24/22 18:20 Blood Pressure 148/58 07/24/22 18:20 Pulse Oximetry 100 07/24/22 18:20 Oxygen Delivery Me thod 07/24/22 16:31 MDM - Chest Pain Medical Decision Making Labs imaging and EKG reviewed. Patient is bradycardic on EKGs but there is no acute ST changes blood pressure is well controlled actually slightly hypertensive. We will discharge patient home have her follow-up with her primary care doctor. We will set up a Lexiscan sestamibi stress test, and an outpatient 48-hour Holter monitor follow-up with cardiology within the next 2 weeks to reevaluate. No medication adjustments she is not on any negative inotropes. Medical Records I reviewed the patient's medical records. Lab Data I reviewed the patient's lab results. 07/24/22 14:23 07/24/22 14:23 Radiology Impressions Chest X-Ray 07/24/22 13:24 Impression: Atherosclerosis. Laboratory Results WBC 6.6 10^3/uL (4.0-10.0) 07/24/22 14:23 RBC 3.87 10^6/uL (4.1-5.3) L 07/24/22 14:23 Hgb 11.9 g/dL (11.5-15.3) 07/24/22 14:23 Hct 34.6 % (37.0-47.0) L 07/24/22 14:23 MCV 89.4 fl (81-99) 07/24/22 14:23 MCH 30.7 pg (28.0-34.0) 07/24/22 14:23 MCHC 34.4 g/dL (30.0-36.0) 07/24/22 14:23 RDW 12.8 % (12.1-15.1) 07/24/22 14:23 Plt Count 200 10^3/cmm (130-400) 07/24/22 14:23 MPV 10.1 fL (7.4-10.4) 07/24/22 14:23 Neut % (Auto) 64.4 % 07/24/22 14:23 Lymph % (Auto) 26.4 % 07/24/22 14:23 [place] % (Auto) 7.3 % 07/24/22 14:23 Eos % (Auto) 1.4 % 07/24/22 14:23 Baso % (Auto) 0.3 % 07/24/22 14:23 Neut # (Auto) 4.25 10^3/uL (1.8-7.7) 07/24/22 14:23 Lymph # (Auto) 1.7 10^3/uL (0.8-4.8) 07/24/22 14:23 [place] # (Auto) 0.5 10^3/uL (0.2-0.9) 07/24/22 14:23 Eos # (Auto) 0.1 10^3/uL (0.0-0.8) 07/24/22 14:23 Baso # (Auto) 0.0 10^3/uL (0.0-0.1) 07/24/22 14:23 Nucleated RBC % (auto) 0 % 07/24/22 14:23 Nucleated RBCs # 0.0 /100WBC 07/24/22 14:23 Sodium 127 mmol/L (136-145) L 07/24/22 14:23 Potassium 4.7 mmol/L (3.5-5.1) 07/24/22 14:23 Chloride 94 mmol/L (98-107) L 07/24/22 14:23 Carbon Dioxide 24 mmol/L (22-29) 07/24/22 14:23 Anion Gap 13.7 (5-19) 07/24/22 14:23 BUN 13 mg/dL (8-23) 07/24/22 14:23 Creatinine 0.9 mg/dL (0.5-0.9) 07/24/22 14:23 GFR Calculation 62.3 mL/min (90-130) L 07/24/22 14:23 Glucose 92 mg/dL (65-115) 07/24/22 14:23 Calculated Osmolality 264 mOsm/kg (285-295) L 07/24/22 14:23 Calcium 9.0 mg/dL (8.5-10.5) 07/24/22 14:23 Total Bilirubin 0.3 mg/dL (0.15-1.2) 07/24/22 14:23 AST 15 U/L (0-32) 07/24/22 14:23 ALT 7 U/L (0-33) 07/24/22 14:23 Alkaline Phosphatase 46 U/L (35-105) 07/24/22 14:23 Troponin T Baseline 12 ng/L (0-10) H 07/24/22 14:23 Troponin T 120 Minute 12.98 ng/L (0-10) H 07/24/22 16:40 Delta Troponin T 0.98 ABS# (0-10) 07/24/22 16:40 Total Protein 6.5 g/dL (6.6-8.7) L 07/24/22 14:23 Albumin 4.3 g/dL (3.5-5.2) 07/24/22 14:23 Globulin 2.2 g/dL (1.3-4.6) 07/24/22 14:23 Discharge Plan Discharge Patient Disposition: Home Clinical Impression: Hereditary hemochromatosis, Atypical chest pain, Bradycardia Condition: Stable Prescriptions: No Action losartan 50 mg tablet 50 mg PO DAILY estradiol 1 mg tablet 1 mg PO DAILY dietary supplement Capsule See Rx Instructions PO .COMPLEX Rx Instructions: Takes a Gluten vitamin and dairy digestion supplement orally; meloxicam 15 mg tablet 15 mg PO DAILY simvastatin 40 mg tablet 40 mg PO DAILY ropinirole 2 mg tablet 2 mg PO DAILY acetaminophen-codeine 300-60 mg tablet See Rx Instructions PO .COMPLEX Rx Instructions: 1 to 2 tablets orally up to 5 times daily; Discharge Orders: Discharge ED (Routine); Ordered 07/24/22 Ordered By: Abad Hernandez Referrals: Lamar Weiner [Primary Care Provider] - Discharge Diet: Usual diet Discharge Activity: Limit activity as instructed Patient Instructions: Opioid Safety, Pain Management Activity Restrictions/Additional Instructions: You were seen today with a complaint of low heart rate (bradycardia). Your blood pressure is adequate. None of the medications you take will lower your heart rate. security program manager will call and make arrangements for you to follow-up with an outpatient Holter monitor. Follow-up with your primary care doctor. They will also call and set up a Lexiscan sestamibi stress test. Coding Level of Care Code ED Multimedia Developer for Chg Fwd Exam Detailed
[2022-07-24 18:05] LABS: Troponin 5 2HR 12.98 ng/L (0-10); Troponin 5 2HR Delta 0.98 ABS# (0-10)
--- NOTE | 2022-07-28 11:34 | DCPLANNER ---
Addendum entered by Nayeli Jiang 08/10/22 08:03: Patient had a follow up appointment scheduled with [facility] for a 48 hour halter monitor - this appointment was cancelled Patient had a stress test ordered - plan manager received the following message from centralized scheduling regarding follow up appointment: This patient, Soumya Freed had her stress test done in [place] and does not need it done here. Addendum entered by Nayeli Jiang 07/31/22 14:28: Patient has a follow up appointment scheduled for Thursday, August 04, 2022 at 10:30 at [facility] for a 48 hour halter monitor. Clinic will call patient with appointment information. Original Note: plan manager had message to schedule an outpatient halter monitor for patient. plan manager faxed signed order to [facility], who will call patient with appointment information. plan manager had message to schedule an outpatient stress test for patient. plan manager faxed signed order to centralized scheduling, who will call patient with appointment informatiom. plan manager also faxed notification to patients primary care physician that these tests were ordered from the ER.
== END 2022-07-24 18:21 | disposition home or self-care (01) ==
PROVIDERS: Emergency Provider Family Medicine; PCP Nurse Practitioner Family
DX: R07.89 Other chest pain (principal); R00.1 Bradycardia, unspecified; E83.110 Hereditary hemochromatosis; I10 Essential (primary) hypertension
CPT/HCPCS: 36415; 71045; 80053; 84484; 85025; 93005; 99285

== ENCOUNTER → 2022-11-03 09:55 | Outpatient (BNVA) | payer MEDICARE, SELFPAY | PROVIDERS: PCP Nurse Practitioner Family; Visit Provider Internal Medicine | DX: E87.1 Hypo-osmolality and hyponatremia (principal) | CPT/HCPCS: 80069 ==

== ENCOUNTER → 2022-11-07 13:20 | Outpatient (BNVA) | payer MEDICARE, SELFPAY | PROVIDERS: PCP Nurse Practitioner Family; Visit Provider Emergency Medicine | DX: M79.662 Pain in left lower leg (principal) | CPT/HCPCS: 73610 ==

== ENCOUNTER → 2022-11-17 09:13 | Outpatient (BNVA) | payer MEDICARE, SELFPAY | PROVIDERS: PCP Nurse Practitioner Family; Visit Provider Nurse Practitioner Family | DX: E87.70 Fluid overload, unspecified (principal) | CPT/HCPCS: 80069; 82043 ==

== ENCOUNTER → 2022-11-22 11:47 | Outpatient (BNVA) | payer MEDICARE, SELFPAY | PROVIDERS: PCP Nurse Practitioner Family; Visit Provider Nurse Practitioner Family | DX: M79.662 Pain in left lower leg (principal) | CPT/HCPCS: 73590 ==

== ENCOUNTER → 2023-03-07 09:48 | Outpatient (BNVA) | payer MEDICARE, SELFPAY | PROVIDERS: PCP Nurse Practitioner Family; Visit Provider Nurse Practitioner Family | DX: R68.89 Other general symptoms and signs (principal); Z20.822 Contact with and (suspected) exposure to COVID-19 | CPT/HCPCS: 87400; 87426 ==

== ENCOUNTER 2023-04-21 10:58 | Outpatient (CLI) | payer MEDICARE, SELFPAY ==
[2023-04-23 10:48] LABS: Osmolality Urine 264 mOsm/kg (50-1200)
[2023-04-23 11:00] LABS: Osmolality Serum 282 mOsm/kg (278-305)
== END 2023-04-21 10:59 | disposition home or self-care (01) ==
LOC: LAB 11:02
PROVIDERS: PCP Nurse Practitioner Family; Visit Provider Internal Medicine
DX: Z01.89 Encounter for other specified special examinations (principal)
CPT/HCPCS: 36415; 83930; 83935

== ENCOUNTER 2023-07-27 11:49 | Outpatient (CLI) | payer MEDICARE, SELFPAY ==
[2023-07-27 12:27] LABS: Basophils % 0.6 %; Eosinophils # 0.1 10^3/uL (0.0-0.8); Eosinophils % 2.1 %; Hematocrit 32.5 % (36-47); Lymphocytes # 2.1 10^3/uL (0.8-4.8); Lymphocytes % 43.4 %; Mean Corpuscular HGB Conc 31.1 g/dL (30-55); Mean Corpuscular Hemoglobin 23.6 pg (27-33); Mean Corpuscular Volume 75.9 fl (85-98); Mean Platelet Volume 10.1 fL (7.4-10.4); Monocytes # 0.4 10^3/uL (0.2-0.9); Monocytes % 9.1 %; Neutrophils # 2.16 10^3/uL (1.8-7.7); Neutrophils % 44.8 %; Nucleated Red Blood Cells % 0 %; Platelet Count 245 10^3/cmm (157-399); Red Blood Count 4.28 10^6/uL (3.85-5.65); Red Cell Distribution Width 15.9 % (12.1-15.1); White Blood Count 4.82 10^3/uL (3.29-11.43)
[2023-07-27 12:48] LABS: Alanine Aminotransferase 8 U/L (0-33); Albumin Level 4.1 g/dL (3.5-5.2); Alkaline Phosphatase 51 U/L (35-105); Anion Gap 11.4 (5-19); Aspartate Amino Transferase 14 U/L (0-32); Blood Urea Nitrogen 13 mg/dL (8-23); Calcium 8.8 mg/dL (8.5-10.5); Carbon Dioxide 25 mmol/L (22-29); Chloride 100 mmol/L (98-107); Ferritin 8 ng/mL (15-150); Globulin 2.6 g/dL (1.3-4.6); Glomerular Filtration Rate 62.1 mL/min (90-130); Glucose 104 mg/dL (65-115); Iron 31 ug/dL (37-145); Osmolality Calculated 274 mOsm/kg (285-295); Percent Saturation 11.9 % (20-50); Potassium 4.4 mmol/L (3.5-5.1); Sodium 132 mmol/L (136-145); Total Bilirubin 0.4 mg/dL (0.15-1.2); Total Iron Binding Capacity 259 mcg/dl; Total Protein 6.7 g/dL (6.6-8.7); Unsaturated Iron Binding 228 ug/dL (112-347)
== END 2023-07-27 11:50 | disposition home or self-care (01) ==
LOC: LAB 11:51
PROVIDERS: PCP Nurse Practitioner Family; Visit Provider Internal Medicine Medical Oncology
DX: E83.110 Hereditary hemochromatosis (principal)
CPT/HCPCS: 36415; 80053; 82728; 83540; 83550; 85025

== ENCOUNTER 2023-07-27 12:39 | Oncology outpatient (recurring) (ONCR) | payer MEDICARE, SELFPAY | END 2023-08-19 23:59 | disposition home or self-care (01) | PROVIDERS: PCP Nurse Practitioner Family; Visit Provider Internal Medicine Medical Oncology | DX: E83.110 Hereditary hemochromatosis (principal); Z79.899 Other long term (current) drug therapy; D64.9 Anemia, unspecified | CPT/HCPCS: 36415; 80053; 82728; 83540; 83550; 85025; 99214 ==

== ENCOUNTER → 2023-07-28 09:25 | Outpatient (BNVA) | payer MEDICARE, SELFPAY | PROVIDERS: PCP Nurse Practitioner Family; Referring Provider Internal Medicine Medical Oncology; Visit Provider Internal Medicine Medical Oncology | DX: D64.9 Anemia, unspecified (principal) | CPT/HCPCS: 82274 ==

== ENCOUNTER 2023-08-15 10:21 | Emergency (ER) | payer MEDICARE, SELFPAY ==
[2023-08-15 10:34] VITALS: BP 162/76; PULSE 68; RESP 14; TEMP 36.3; O2SAT 97
--- NOTE | 2023-08-15 11:26 | XRR_ITS ---
PROCEDURE INFORMATION: Exam: XR Lumbosacral Spine Exam date and time: 08/15/2023 12:06 PM Age: 67 years old Clinical indication: Low back pain; Prior surgery; Surgery date: 1-6 months; Surgery type: RT si joint fusion 05/2023; Lumbar fusion x2; RT hip replacement; Additional info: Lbp no trauma prev surgery TECHNIQUE: Imaging protocol: Radiologic exam of the lumbosacral spine. Views: 2 or 3 views. COMPARISON: No relevant prior studies available. FINDINGS: Bones/joints: L5-S1 posterior fusion without hardware complication. Alignment grossly maintained. Multilevel degenerative changes worst at T12-L2. Vertebral body heights are maintained without evidence of acute fracture. Soft tissues: No acute findings. XR/XR lumbar spine 2-3V* [id number] IMPRESSION: Degenerative and postsurgical changes without acute findings.
--- NOTE | 2023-08-15 11:34 | ED_ITS ---
HPI - Back Pain/Injury 2 General: Chief Complaint: Back Pain/Injury Stated Complaint: lower abd and lower back pain Time Seen by Provider: 08/15/23 11:18 History of Present Illness: Patient presents to the ER with complaints of low back pain that radiates around to the abdomen. This been going on for multiple days. Patient does have a history of a bad back with back surgery. She says this is different. Patient has a history of chronic kidney disease. Patient been taken Tylenol threes but they have not been helping. Patient denies any fever chills dysuria frequency hematuria. Patient stated it got so bad last night that she was unable to sleep. It hurts to move, bend, twist, the pain stays at the same level of her back and wraps around to her abdomen. He does not radiate up or down. Patient has had sciatica in the past and this is different. Patient has no known trauma or overuse to this area. Review of Systems 2 General: Reports: 10 or more systems reviewed and unremarkable except in HPI and below PFSH ED 2 PFSH: Medical History Hereditary hemochromatosis History of diverticulitis Osteoporosis Lactose intolerance due to acquired lactase deficiency Hypertension Gout GERD (gastroesophageal reflux disease) Fibromyalgia Degenerative arthritis Surgical History History of thumb surgery History of right hip replacement 10/03/2018 History of laminectomy History of hysterectomy History of cholecystectomy History of bladder surgery Bladder sling History of appendectomy Family History Other CAD (coronary artery disease) Cancer Dementia Hyperlipidemia Hypertension Stroke Denies family history of Diabetes Clotting disorder Psychiatric illness Chronic kidney disease (CKD) Suicide Anesthesia complication Bleeding disorder Lung disease Social History Smoking and tobacco/nicotine status: never used tobacco/nicotine Alcohol intake: never Female Reproductive History: Spontaneous abortions: No Physical Exam 2 Const: COMMON NORMALS: no acute distress, average body habitus, patient oriented x3, no limitations, healthy appearing, alert and well nourished HENMT: COMMON NORMALS: normocephalic, atraumatic, hearing grossly normal bilaterally, external ears normal, Normal external nose present, moist oral mucous membranes and oropharynx normal HEAD & SCALP: normocephalic and atraumatic NOSE: Normal external nose present EXTERNAL EAR: Yes external ears normal Neck/C-Spine: COMMON NORMALS: no JVD Chest: COMMONS NORMALS: normal inspection of the chest and normal palpation of entire chest wall Resp: COMMON NORMALS: normal respiratory effort, No retractions, No use of accessory muscles and clear to auscultation bilaterally AUSCULTATION: clear to auscultation bilaterally Cardio: COMMON NORMALS: no JVD, regular rate, regular rhythm, S1 normal heart sound present, S2 normal heart sound present, No gallops present (Cardio), No clicks present (Cardio), No murmurs present (Cardio) and No rub (Cardio) R ATE: regular rate RHYTHM: regular rhythm HEART SOUNDS: S1 normal heart sound present and S2 normal heart sound present GI: COMMON NORMALS: Normal to inspection, nondistended, normoactive bowel sounds present, Soft to palpation, non-tender, No hepatosplenomegaly present and no masses PALPATION: Yes Soft to palpation and Yes No hepatosplenomegaly present Back/Pelvis: OTHER: Tender to palpate over upper lumbar paraspinal musculature. No point tenderness over spinal processes. Musculature tight spastic. Palpation of this area reproduces pain. Neuro: COMMON NORMALS: patient oriented x3 SENSORIUM/ORIENTATION: Yes alert Course 2 Vital Signs: Vital signs: Vital Signs Temperature 97.4 F L 08/15/23 10:34 Pulse Rate 68 08/15/23 10:34 Respiratory Rate 16 08/15/23 11:59 Blood Pressure 162/76 08/15/23 10:34 Pulse Oximetry 97 08/15/23 10:34 Oxygen Delivery Me thod Room Air 08/15/23 10:34 MDM - Back Pain/Injury Medical Decision Making Physical exam was performed as well as lab work, urinalysis and lumbar spine x- ray. Lab work was essentially benign or stable for the patient and lumbar x-ray showed degenerative changes with postsurgical findings with no acute findings. Patient was given IV fentanyl and Norflex and pain drastically improved. Patient be discharged home on a small amount of hydrocodone and is to follow-up with her primary care doctor within the next 7 days for further evaluation and treatment. Differential Diagnosis Likely strain of lumbar region; Unlikely lumbar radiculopathy, sciatica, renal colic, pyelonephritis, thoracic back pain, AAA or discitis Medical Records I reviewed the patient's medical records. Labs I reviewed the patient's lab results. 08/15/23 11:59 08/15/23 11:59 Radiology Impressions Lumbar Spine X-Ray 08/15/23 11:26 IMPRESSION: Degenerative and postsurgical changes without acute findings. Laboratory Results WBC 6.98 10^3/uL (3.29-11.43) 08/15/23 11:59 RBC 4.63 10^6/uL (3.85-5.65) 08/15/23 11:59 Hgb 10.90 g/dL (11.27-16.99) L 08/15/23 11:59 Hct 35.2 % (36-47) L 08/15/23 11:59 MCV 76.0 fl (85-98) L 08/15/23 11:59 MCH 23.5 pg (27-33) L 08/15/23 11:59 MCHC 31.0 g/dL (30-55) 08/15/23 11:59 RDW 16.0 % (12.1-15.1) H 08/15/23 11:59 Plt Count 309 10^3/cmm (157-399) 08/15/23 11:59 MPV 10.7 fL (7.4-10.4) H 08/15/23 11:59 Neut % (Auto) 72.9 % 08/15/23 11:59 Lymph % (Auto) 20.2 % 08/15/23 11:59 [place] % (Auto) 5.7 % 08/15/23 11:59 Eos % (Auto) 0.3 % 08/15/23 11:59 Baso % (Auto) 0.6 % 08/15/23 11:59 Neut # (Auto) 5.09 10^3/uL (1.8-7.7) 08/15/23 11:59 Lymph # (Auto) 1.4 10^3/uL (0.8-4.8) 08/15/23 11:59 [place] # (Auto) 0.4 10^3/uL (0.2-0.9) 08/15/23 11:59 Eos # (Auto) 0.0 10^3/uL (0.0-0.8) 08/15/23 11:59 Baso # (Auto) 0.0 10^3/uL (0.0-0.1) 08/15/23 11:59 Nucleated RBC % (auto) 0 % 08/15/23 11:59 Nucleated RBCs # 0.0 /100WBC 08/15/23 11:59 Sodium 133 mmol/L (136-145) L 08/15/23 11:59 Potassium 4.5 mmol/L (3.5-5.1) 08/15/23 11:59 Chloride 98 mmol/L (98-107) 08/15/23 11:59 Carbon Dioxide 22 mmol/L (22-29) 08/15/23 11:59 Anion Gap 17.5 (5-19) 08/15/23 11:59 BUN 18 mg/dL (8-23) 08/15/23 11:59 Creatinine 1.0 mg/dL (0.5-0.9) H 08/15/23 11:59 GFR Calculation 55.0 mL/min (90-130) L 08/15/23 11:59 Glucose 103 mg/dL (65-115) 08/15/23 11:59 Calculated Osmolality 278 mOsm/kg (285-295) L 08/15/23 11:59 Calcium 8.8 mg/dL (8.5-10.5) 08/15/23 11:59 Total Bilirubin 0.3 mg/dL (0.15-1.2) 08/15/23 11:59 AST 5 U/L (0-32) 08/15/23 11:59 ALT 10 U/L (0-33) 08/15/23 11:59 Alkaline Phosphatase 68 U/L (35-105) 08/15/23 11:59 Total Protein 7.6 g/dL (6.6-8.7) 08/15/23 11:59 Albumin 4.3 g/dL (3.5-5.2) 08/15/23 11:59 Globulin 3.3 g/dL (1.3-4.6) 08/15/23 11:59 Urine Color Straw (Yellow) 08/15/23 11:45 Urine Appearance Clear (CLEAR) 08/15/23 11:45 Urine pH 5 (5-7) 08/15/23 11:45 Ur Specific [place] 1.005 (1.005-1.030) 08/15/23 11:45 Urine Protein Neg (Negative) 08/15/23 11:45 Urine Glucose (UA) Norm (Normal) 08/15/23 11:45 Urine Ketones Negative (Negative) 08/15/23 11:45 Urine Blood Neg (Negative) 08/15/23 11:45 Urine Nitrate Negative (Negative) 08/15/23 11:45 Urine Bilirubin Neg (Negative) 08/15/23 11:45 Urine Urobilinogen Norm mg/dL (Negative) 08/15/23 11:45 Ur Leukocyte Esterase Negative (Negative) 08/15/23 11:45 All radiology interpretation(s) finalized by discharge Discharge Plan Discharge Patient Disposition: Home Clinical Impression: Low back pain Qualifiers: Chronicity: acute Back pain laterality: bilateral Sciatica presence: without sciatica Qualified Code(s): M54.50 - Low back pain, unspecified Condition: Stable Prescriptions: New cyclobenzaprine 5 mg tablet 5 mg PO TID PRN (Reason: muscle spasm) Qty: 14 0RF hydrocodone-acetaminophen 5-325 mg tablet 1 tab PO Q6H PRN (Reason: pain) Qty: 14 0RF No Action losartan 50 mg tablet 50 mg PO DAILY estradiol 1 mg tablet 1 mg PO DAILY omeprazole 20 mg capsule,delayed release(DR/EC) 20 mg PO DAILY alprazolam 0.5 mg tablet 0.5 mg PO TID colestipol 1 gram tablet 1 g PO BID escitalopram oxalate 10 mg tablet 10 mg PO DAILY famotidine 20 mg tablet 20 mg PO DAILY isosorbide dinitrate 30 mg tablet 30 mg PO BID Rx Instructions: allow nitrate-free interval of 12-14 hrs per 24-hr period cholecalciferol (vitamin D3) 25 mcg (1,000 unit) capsule 25 mcg PO DAILY zinc gluconate 50 mg tablet 50 mg PO DAILY meloxicam 15 mg tablet 15 mg PO DAILY ropinirole 2 mg tablet 2 mg PO DAILY acetaminophen-codeine 300-60 mg tablet See Rx Instructions PO .COMPLEX Rx Instructions: 1 to 2 tablets orally up to 5 times daily; Discharge Orders: Discharge ED (Routine); Ordered 08/15/23 Ordered By: Israel Campos Referrals: Lamar Weiner [Primary Care Provider] - 1 week Patient Instructions: Acute Low Back Pain (ED), Opioid Safety, Pain Management Activity Restrictions/Additional Instructions: Your evaluation in ER showed your back pain is coming from your back. Blood work and urine were essentially negative. Your GFR upon our lab work is 55. Please take all medicine as directed. Prescription for pain medicine, hydrocodone, and a muscle relaxer, cyclobenzaprine, will be sent to your pharmacy. Please follow-up with your family practice physician within the next 7 days for further evaluation testing as needed. If your pain worsens or becomes uncontrollable please return to the ER. Coding Level of Care Code ED Greeter for Camilo Sherwood
[2023-08-15 11:59] VITALS: RESP 16
[2023-08-15] MEDS: fentaNYL 50 mcg/mL INJ 2mL 25 MCG IVP ×2 (11:59→13:46)
[2023-08-15] MEDS: orphenadrine 30 mg/mL Inj 2 mL IVP (12:00)
[2023-08-15 12:21] LABS: Basophils % 0.6 %; Eosinophils % 0.3 %; Hematocrit 35.2 % (36-47); Lymphocytes # 1.4 10^3/uL (0.8-4.8); Lymphocytes % 20.2 %; Mean Corpuscular Hemoglobin 23.5 pg (27-33); Mean Platelet Volume 10.7 fL (7.4-10.4); Monocytes # 0.4 10^3/uL (0.2-0.9); Monocytes % 5.7 %; Neutrophils # 5.09 10^3/uL (1.8-7.7); Neutrophils % 72.9 %; Nucleated Red Blood Cells % 0 %; Platelet Count 309 10^3/cmm (157-399); Red Blood Count 4.63 10^6/uL (3.85-5.65); White Blood Count 6.98 10^3/uL (3.29-11.43)
[2023-08-15 12:22] LABS: Add Urine Microscopic? NO; Charge for UA Resulting for Rev
[2023-08-15 12:30] LABS: Bilirubin Urine Neg (Negative); Blood Urine Neg (Negative); Glucose Urine UA Norm (Normal); Ketones Urine Negative (Negative); Leukocyte Esterase Urine Negative (Negative); Nitrate Urine Negative (Negative); Protein Urine Neg (Negative); Specific Gravity, Urine 1.005 (1.005-1.030); Urine Appearance Clear (CLEAR); Urine Color Straw (Yellow); Urobilinogen Urine Norm (Negative); pH Urine 5 (5-7)
[2023-08-15 12:45] LABS: Alanine Aminotransferase 10 U/L (0-33); Albumin Level 4.3 g/dL (3.5-5.2); Alkaline Phosphatase 68 U/L (35-105); Blood Urea Nitrogen 18 mg/dL (8-23); Calcium 8.8 mg/dL (8.5-10.5); Carbon Dioxide 22 mmol/L (22-29); Chloride 98 mmol/L (98-107); Globulin 3.3 g/dL (1.3-4.6); Glucose 103 mg/dL (65-115); Osmolality Calculated 278 mOsm/kg (285-295); Sodium 133 mmol/L (136-145); Total Bilirubin 0.3 mg/dL (0.15-1.2); Total Protein 7.6 g/dL (6.6-8.7)
[2023-08-15 12:55] LABS: Aspartate Amino Transferase 5 U/L (0-32)
[2023-08-15 13:10] LABS: Anion Gap 17.5 (5-19); Creatinine Clr Calc Pharmacy 46.8514; Potassium 4.5 mmol/L (3.5-5.1)
[2023-08-15 13:46] VITALS: RESP 20; O2SAT 99
[2023-08-15 14:03] VITALS: BP 162/76; PULSE 68; RESP 18; TEMP 36.3; O2SAT 99
== END 2023-08-15 14:04 | disposition home or self-care (01) ==
PROVIDERS: Emergency Provider Emergency Medicine; PCP Nurse Practitioner Family
DX: M54.50 Low back pain, unspecified (principal); I10 Essential (primary) hypertension
CPT/HCPCS: 36415; 72100; 80053; 81003; 85025; 96374; 96375; 96376; 99284; J2360; J3010

== ENCOUNTER → 2023-10-21 09:50 | Outpatient (BNVA) | payer MEDICARE, SELFPAY | PROVIDERS: PCP Nurse Practitioner Family; Referring Provider Internal Medicine Medical Oncology; Visit Provider Internal Medicine Medical Oncology | DX: E83.110 Hereditary hemochromatosis (principal) | CPT/HCPCS: 80053; 82728; 83550; 84238; 85025 ==

== ENCOUNTER 2023-10-28 14:02 | Oncology outpatient (recurring) (ONCR) | payer MEDICARE, SELFPAY | END 2023-11-19 23:59 | disposition home or self-care (01) | LOC: ONCMED 14:03 | PROVIDERS: PCP Nurse Practitioner Family; Visit Provider Internal Medicine Medical Oncology | DX: E83.110 Hereditary hemochromatosis (principal); Z79.899 Other long term (current) drug therapy | CPT/HCPCS: 99213 ==

== ENCOUNTER 2023-10-29 09:59 | Emergency (ER) | payer MEDICARE, SELFPAY ==
[2023-10-29 10:03] VITALS: BP 174/63; PULSE 50; RESP 18; TEMP 36.8; O2SAT 97
--- NOTE | 2023-10-29 10:12 | CT_ITS ---
WS: [id number] CT HEAD NONCONTRAST HISTORY: dizzy/lightheaded TECHNIQUE: Contiguous axial imaging performed through the brain in 2.5 mm imaging. Bone and soft tiss ue windows. Sagittal and coronal reformats reviewed. All CT scans at [facility] use at least one of these dose optimization techniques: automated exposure control; mA and/or kV adjustment per pa tient size (includes targeted exams where dose is matched to clinical indication); or iterative recon struction. DLP: 1076.08 mGy.cm COMPARISON: None available. No acute intracranial hemorrhage, midline shift or mass effect. Minimal atrophy and small vessel ischemic disease. Ventricles: Normal size with no hydrocephalus. No inferior displacement of the cerebellar tonsils. Paranasal sinuses: As visualized are clear. Mastoid air cells: Well pneumatized. Calvarium and scalp: Skull is intact with no soft tissue edema or swelling. CT/CT head wo con* [id number] IMPRESSION: 1. No acute intracranial hemorrhage or edema. 2. Mild atrophy and mild small vessel ischemic disease.
--- NOTE | 2023-10-29 10:12 | ECG_ITS ---
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 Measurements Intervals [place]Brien Rate: 48 P: 58 [place]: 219 QRS: 46 QRSD: 76 T: 62 QT: 438 QTc: 394 Interpretive Statements SINUS BRADYCARDIA WITH FIRST DEGREE AV BLOCK LOW QRS VOLTAGE IN PRECORDIAL LEADS [QRS DEFLECTION < 1.0 mV IN CHEST LEADS] SEPTAL MYOCARDIAL INFARCTION , OF INDETERMINATE AGE [40+ ms Q WAVE IN V1/V2] Compared to ECG 07/24/2022 18:21:10 First degree AV block now present Myocardial infarct finding now present Ventricular premature complex(es) no longer present Electronically Signed On 10-29-2023 14:51:43 CDT by Gustabo Sierra M.D. [email or web address]
--- NOTE | 2023-10-29 10:12 | XR_ITS ---
WS: [id number] Portable AP upright chest, 10/29/2023 Clinical Data: dizzy Comparison: Portable chest, 07/24/2022 Findings: No nodules, masses or effusions are seen. The heart is normal. The pulmonary vascularity is not increased. No pneumonia or pneumothorax is seen. The aortic arch and descending thoracic aorta s how mild tortuosity. There is a prominent right cardiophrenic fat pad or cyst. There are right upper quadrant cholecystectomy clips. XR/XR chest 1V portable [id number] Impression: Atherosclerosis
--- NOTE | 2023-10-29 10:15 | ED_ITS ---
Documented by User: CECIL Rios 11/01/23 16:15 HPI - Weakness 2 General: Chief complaint: Weakness Stated complaint: weakness, n/v Time Seen by Provider: 10/29/23 10:01 Source: patient Mode of arrival: EMS Limitations: no limitations History of Present Illness: Patient is a 67-year-old female who presents to the emergency department via EMS due to sudden onset of weakness and dizziness just prior to arrival. Patient comes from [facility] as she reportedly had the symptoms while sitting down, and states that when she stood up she felt the need to pass out. She does note that she has had the symptoms before, and has a history of hemochromatosis for which she sees Dr. Rock. She notes a history of chronic anemia, no recent transfusions. She was also noting some associated nausea, which is improved after receiving Zofran by ambulance. She also notes that currently she is asymptomatic, and was ambulatory from cot to ER bed. Additionally, she does not have any neurological complaints as she is not complaining of any blurred vision, unilateral numbness/weakness/tingling, or any concerning signs of stroke. She is not reporting any chest pain, palpitations, breathing difficulties, syncope and collapse, or other symptoms. She does not have a personal history of strokes or heart attacks. She does note that she recently started a new blood pressure medication 2 days ago, unknown what the name is at this time. Additionally for blood pressure she takes losartan and isosorbide. She states her blood pressure normally is in the 170 systolic, and she normally has a bradycardic pulse in the high 40s low 50s. On arrival, her vitals are reportedly stable and she is asymptomatic at this time. MD Complaint: generalized weakness Onset (ago): hour(s) Duration: now resolved Context: new medication Associated symptoms: Reports nausea; Denies chest pain, chills, dysuria, fever(s), headache(s) or vomiting Review of Systems 2 General: Reports: 10 or more systems reviewed and unremarkable except in HPI and below Const: Denies: fever(s), chills or fatigue Eyes: Denies: change in vision ENMT: Denies: throat pain, ear or mastoid pain or nasal discharge Card: Denies: chest pain, palpitations, swelling of feet/ankles or lightheadedness Resp: Denies: dyspnea, productive cough or wheezing GI: Reports: nausea; Denies: abdominal pain, vomiting, diarrhea or change in bowel habits : Denies: flank pain, difficulty voiding, dysuria or urinary frequency Musc: Denies: neck pain, back pain or joint pain Skin/Breast: Denies: rash Neuro: Reports: weakness in extremities and dizziness; Denies: headache(s) or numbness in extremities PFSH ED 2 PFSH: Medical History (Updated 10/29/23 @ 12:14 by CECIL Rios) Hereditary hemochromatosis History of diverticulitis Osteoporosis Lactose intolerance due to acquired lactase deficiency Hypertension Gout GERD (gastroesophageal reflux disease) Fibromyalgia Degenerative arthritis Surgical History History of thumb surgery History of right hip replacement 10/03/2018 History of laminectomy History of hysterectomy History of cholecystectomy History of bladder surgery Bladder sling History of appendectomy Family History Other CAD (coronary artery disease) Cancer Dementia Hyperlipidemia Hypertension Stroke Denies family history of Diabetes Clotting disorder Psychiatric illness Chronic kidney disease (CKD) Suicide Anesthesia complication Bleeding disorder Lung disease Social History Smoking and tobacco/nicotine status: never used tobacco/nicotine Alcohol intake: never Female Reproductive History: Spontaneous abortions: No Physical Exam 2 Const: COMMON NORMALS: no acute distress, patient oriented x3 and no limitations GENERAL APPEARANCE: cooperative, comfortable and well developed ORIENTATION/CONSCIOUSNESS: Yes awake, Yes oriented to person, Yes oriented to place and Yes oriented to time HENMT: COMMON NORMALS: normocephalic, atraumatic and hearing grossly normal bilaterally HEAD & SCALP: normocephalic and atraumatic Eye: COMMON NORMALS: Equal, round and reactive pupils present, EOMs intact bilaterally and conjunctivae normal CONJUNCTIVA: Yes conjunctivae normal P UPIL: Yes Equal, round and reactive pupils present Neck/C-Spine: COMMON NORMALS: full ROM, supple and no JVD Resp: COMMON NORMALS: normal respiratory effort, No retractions, No use of accessory muscles and clear to auscultation bilaterally AUSCULTATION: clear to auscultation bilaterally Cardio: COMMON NORMALS: no JVD, regular rhythm, No clicks present (Cardio), No murmurs present (Cardio), No rub (Cardio) and Peripheral pulses 2+ throughout PALPATION: normal PMI RATE: bradycardic RHYTHM: regular rhythm P ERIPHERAL PULSES: Peripheral pulses 2+ throughout GI: COMMON NORMALS: Normal to inspection, nondistended, normoactive bowel sounds present, Soft to palpation and non-tender AUSCULTATION: Yes normoactive bowel sounds PALPATION: Yes Soft to palpation RECTAL EXAM: d eferred Extremity: COMMON NORMALS: normal to inspection, full ROM, capillary refill normal and no pedal edema Neuro: COMMON NORMALS: patient oriented x3, CN's II-XII intact bilaterally, moves all extremities, no focal motor deficits and no sensory deficits noted SENSORIUM/ORIENTATION: Yes oriented to person, Yes oriented to place and Yes oriented to time Psych: COMMON NORMALS: mental status grossly normal and Normal thought process present THOUGHT PROCESS: Normal thought process present Skin: COMMON NORMALS: no rashes or lesions noted GENERAL SKIN EXAM: no rashes or lesions noted Course 2 Vital Signs: Vital signs: Vital Signs Temperature 98.3 F 10/29/23 12:59 Pulse Rate 52 L 10/29/23 12:59 Respiratory Rate 18 10/29/23 12:59 Blood Pressure 137/61 10/29/23 12:59 Pulse Oximetry 90 10/29/23 12:59 Oxygen Delivery Me thod Room Air 10/29/23 11:07 MDM - Weakness Medical Decision Making Patient arrived via ambulance due to sudden onset of dizziness and weakness. She has had this before, recently was started on hydralazine. On arrival she was asymptomatic, pulse bradycardic though patient states this is normal for her. She also notes her blood pressure is normally [address] head unremarkable, as well as laboratory workup. Was found to be very mildly anemic, though this is baseline. No evidence of urinary tract infection. Chest x-ray unremarkable. Patient had reportedly taken her hydralazine today, and I do believe her symptoms potentially due to starting this and her blood pressure dropping lower than her baseline and causing the symptoms upon standing. Her orthostatic vital signs were unremarkable. I will have her dose of hydralazine to 5 mg p.o. twice a day, and instructed to follow-up with primary care to further discuss management of her medications. She is still asymptomatic prior to discharge, and is ready to go home. Strict return precautions were given and all other questions and concerns are addressed at this time. Chart reviewed Lab Data 10/29/23 10:10/29/23 10: Radiology Impressions Chest X-Ray 10/29/23 10:12 Impression: Atherosclerosis Head CT 10/29/23 10:12 IMPRESSION: 1. No acute intracranial hemorrhage or edema. 2. Mild atrophy and mild small vessel ischemic disease. Laboratory Results WBC 6.16 10^3/uL (3.29-11.43) 10/29/23 10: RBC 4.55 10^6/uL (3.85-5.65) 10/29/23 10: Hgb 11.00 g/dL (11.27-16.99) L 10/29/23 10: Hct 35.9 % (36-47) L 10/29/23 10: MCV 78.9 fl (85-98) L 10/29/23 10: MCH 24.2 pg (27-33) L 10/29/23 10: MCHC 30.6 g/dL (30-55) 10/29/23 10: RDW 16.2 % (12.1-15.1) H 10/29/23 10: Plt Count 244 10^3/cmm (157-399) 10/29/23 10: MPV 10.1 fL (7.4-10.4) 10/29/23 10: Neut % (Auto) 67.0 % 10/29/23 10: Lymph % (Auto) 21.1 % 10/29/23 10: [place] % (Auto) 10.2 % 10/29/23 10:29 Eos % (Auto) 0.6 % 10/29/23 10: Baso % (Auto) 0.8 % 10/29/23 10: Neut # (Auto) 4.12 10^3/uL (1.8-7.7) 10/29/23 10: Lymph # (Auto) 1.3 10^3/uL (0.8-4.8) 10/29/23 10:29 [place] # (Auto) 0.6 10^3/uL (0.2-0.9) 10/29/23 10:29 Eos # (Auto) 0.0 10^3/uL (0.0-0.8) 10/29/23 10: Baso # (Auto) 0.1 10^3/uL (0.0-0.1) 10/29/23 10: Nucleated RBC % (auto) 0 % 10/29/23 10: Nucleated RBCs # 0.0 /100WBC 10/29/23 10: PT 13.00 SECONDS (12.1-14.9) 10/29/23 10: INR 0.95 (0.8-1.2) 10/29/23 10: APTT 26.2 SECONDS (23.9-36.7) 10/29/23 10: Sodium 134 mmol/L (136-145) L 10/29/23 10: Potassium 4.3 mmol/L (3.5-5.1) 10/29/23 10: Chloride 99 mmol/L (98-107) 10/29/23 10: Carbon Dioxide 26 mmol/L (22-29) 10/29/23 10: Anion Gap 13.3 (5-19) 10/29/23 10: BUN 12 mg/dL (8-23) 10/29/23 10: Creatinine 1.0 mg/dL (0.5-0.9) H 10/29/23 10: GFR Calculation 55.0 mL/min (90-130) L 10/29/23 10: Glucose 117 mg/dL (65-115) H 10/29/23 10: Calculated Osmolality 279 mOsm/kg (285-295) L 10/29/23 10: Calcium 9.1 mg/dL (8.5-10.5) 10/29/23 10: Total Bilirubin 0.2 mg/dL (0.15-1.2) 10/29/23 10: AST 12 U/L (0-32) 10/29/23 10: ALT 8 U/L (0-33) 10/29/23 10: Alkaline Phosphatase 47 U/L (35-105) 10/29/23 10: Troponin T Baseline 12 ng/L (0-10) H 10/29/23 10: Total Protein 6.6 g/dL (6.6-8.7) 10/29/23 10: Albumin 4.0 g/dL (3.5-5.2) 10/29/23 10: Globulin 2.6 g/dL (1.3-4.6) 10/29/23 10:29 Urine Color Yellow (Yellow) 10/29/23 11:16 Urine Appearance Clear (CLEAR) 10/29/23 11:16 Urine pH 5 (5-7) 10/29/23 11:16 Ur Specific [place] 1.015 (1.005-1.030) 10/29/23 11:16 Urine Protein 1+ (Negative) H 10/29/23 11:16 Urine Glucose (UA) Norm (Normal) 10/29/23 11:16 Urine Ketones Negative (Negative) 10/29/23 11:16 Urine Blood Neg (Negative) 10/29/23 11:16 Urine Nitrate Negative (Negative) 10/29/23 11:16 Urine Bilirubin Neg (Negative) 10/29/23 11:16 Urine Urobilinogen Norm mg/dL (Negative) 10/29/23 11:16 Ur Leukocyte Esterase Negative (Negative) 10/29/23 11:16 Urine RBC None /hpf (0-2) 10/29/23 11:16 Urine WBC Rare /hpf (0-5) 10/29/23 11:16 Ur Squamous Epith Cells 0-4 /hpf (0-5) H 10/29/23 11:16 Amorphous Sediment Not Reportable 10/29/23 11:16 Urine Bacteria None /hpf (NONE) 10/29/23 11:16 Urine Mucus 1+ /hpf 10/29/23 11:16 All radiology interpretation(s) finalized by discharge Discharge Plan Discharge Patient Disposition: Home Clinical Impression: Medication adverse effect Qualifiers: Encounter type: initial encounter Qualified Code(s): T50.905A - Adverse effect of unspecified drugs, medicaments and biological substances, initial encounter Condition: Stable Prescriptions: No Action estradiol 1 mg tablet 1 mg PO DAILY alprazolam 0.5 mg tablet 0.5 mg PO TID PRN (Reason: Anxiety) escitalopram oxalate 10 mg tablet 10 mg PO DAILY famotidine 20 mg tablet 20 mg PO DAILY acetaminophen-codeine 300-60 mg tablet See Rx Instructions .ROUTE .COMPLEX Rx Instructions: Take 1 to 2 tablets orally up to 5 times daily; hydralazine 10 mg tablet 10 mg PO BID isosorbide mononitrate 60 mg tablet extended release 24 hr 60 mg PO QAM losartan 100 mg tablet 100 mg PO DAILY ropinirole 4 mg tablet 2 mg PO QPM Flintstones with Extra Iron 18 mg iron Tablet,Chewable 1 tab PO DAILY Discharge Orders: Discharge ED (Routine); Ordered 10/29/23 Ordered By: Paddy Hagan Referrals: Lamar Weiner [Primary Care Provider] - Discharge Diet: Usual diet Discharge Activity: Increase activity as tolerated Patient Instructions: Hypotension (ED) Activity Restrictions/Additional Instructions: Half your dose of hydralazine from 10 mg to 5 mg by mouth twice a day. Follow- up with primary care to discuss this medication adjustment and for further evaluation. Please return if you have any new or concerning symptoms. Coding Level of Care Code ED Gis Physical Scientist for Chg Fwd Documented by User: Abad Hernandez DO 11/01/23 16:29 HPI - Weakness 2 General: Chief complaint: Weakness Stated complaint: weakness, n/v Time Seen by Provider: 10/29/23 10:01 [facility] ED 2 [facility]: Medical History (Updated 10/29/23 @ 12:14 by CECIL Rios) Hereditary hemochromatosis History of diverticulitis Osteoporosis Lactose intolerance due to acquired lactase deficiency Hypertension Gout GERD (gastroesophageal reflux disease) Fibromyalgia Degenerative arthritis Surgical History History of thumb surgery History of right hip replacement 10/03/2018 History of laminectomy History of hysterectomy History of cholecystectomy History of bladder surgery Bladder sling History of appendectomy Family History Other CAD (coronary artery disease) Cancer Dementia Hyperlipidemia Hypertension Stroke Denies family history of Diabetes Clotting disorder Psychiatric illness Chronic kidney disease (CKD) Suicide Anesthesia complication Bleeding disorder Lung disease Social History Smoking and tobacco/nicotine status: never used tobacco/nicotine Alcohol intake: never Course 2 Vital Signs: Vital signs: Vital Signs Temperature 98.3 F 10/29/23 12:59 Pulse Rate 52 L 10/29/23 12:59 Respiratory Rate 18 10/29/23 12:59 Blood Pressure 137/61 10/29/23 12:59 Pulse Oximetry 90 10/29/23 12:59 Oxygen Delivery Me thod Room Air 10/29/23 11:07 MDM - Weakness Medical Decision Making Chart reviewed Lab Data 10/29/23 10:29 10/29/23 10:29 Radiology Impressions Chest X-Ray 10/29/23 10:12 Impression: Atherosclerosis Head CT 10/29/23 10:12 IMPRESSION: 1. No acute intracranial hemorrhage or edema. 2. Mild atrophy and mild small vessel ischemic disease. Laboratory Results WBC 6.16 10^3/uL (3.29-11.43) 10/29/23 10: RBC 4.55 10^6/uL (3.85-5.65) 10/29/23 10:29 Hgb 11.00 g/dL (11.27-16.99) L 10/29/23 10:29 Hct 35.9 % (36-47) L 10/29/23 10: MCV 78.9 fl (85-98) L 10/29/23 10: MCH 24.2 pg (27-33) L 10/29/23 10: MCHC 30.6 g/dL (30-55) 10/29/23 10:29 RDW 16.2 % (12.1-15.1) H 10/29/23 10:29 Plt Count 244 10^3/cmm (157-399) 10/29/23 10:29 MPV 10.1 fL (7.4-10.4) 10/29/23 10:29 Neut % (Auto) 67.0 % 10/29/23 10: Lymph % (Auto) 21.1 % 10/29/23 10:29 [place] % (Auto) 10.2 % 10/29/23 10:29 Eos % (Auto) 0.6 % 10/29/23 10:29 Baso % (Auto) 0.8 % 10/29/23 10:29 Neut # (Auto) 4.12 10^3/uL (1.8-7.7) 10/29/23 10: Lymph # (Auto) 1.3 10^3/uL (0.8-4.8) 10/29/23 10: [place] # (Auto) 0.6 10^3/uL (0.2-0.9) 10/29/23 10: Eos # (Auto) 0.0 10^3/uL (0.0-0.8) 10/29/23 10: Baso # (Auto) 0.1 10^3/uL (0.0-0.1) 10/29/23 10: Nucleated RBC % (auto) 0 % 10/29/23: Nucleated RBCs # 0.0 /100WBC 10/29/23 10: PT 13.00 SECONDS (12.1-14.9) 10/29/23 10: INR 0.95 (0.8-1.2) 10/29/23 10: APTT 26.2 SECONDS (23.9-36.7) 10/29/23 10: Sodium 134 mmol/L (136-145) L 10/29/23 10: Potassium 4.3 mmol/L (3.5-5.1) 10/29/23 10: Chloride 99 mmol/L (98-107) 10/29/23 10: Carbon Dioxide 26 mmol/L (22-29) 10/29/23 10: Anion Gap 13.3 (5-19) 10/29/23 10: BUN 12 mg/dL (8-23) 10/29/23 10: Creatinine 1.0 mg/dL (0.5-0.9) H 10/29/23 10: GFR Calculation 55.0 mL/min (90-130) L 10/29/23 10: Glucose 117 mg/dL (65-115) H 10/29/23 10: Calculated Osmolality 279 mOsm/kg (285-295) L 10/29/23 10: Calcium 9.1 mg/dL (8.5-10.5) 10/29/23 10: Total Bilirubin 0.2 mg/dL (0.15-1.2) 10/29/23 10: AST 12 U/L (0-32) 10/29/23 10:29 ALT 8 U/L (0-33) 10/29/23 10:29 Alkaline Phosphatase 47 U/L (35-105) 10/29/23 10: Troponin T Baseline 12 ng/L (0-10) H 10/29/23 10:29 Total Protein 6.6 g/dL (6.6-8.7) 10/29/23 10: Albumin 4.0 g/dL (3.5-5.2) 10/29/23 10: Globulin 2.6 g/dL (1.3-4.6) 10/29/23 10:29 Urine Color Yellow (Yellow) 10/29/23 11:16 Urine Appearance Clear (CLEAR) 10/29/23 11:16 Urine pH 5 (5-7) 10/29/23 11:16 Ur Specific [place] 1.015 (1.005-1.030) 10/29/23 11:16 Urine Protein 1+ (Negative) H 10/29/23 11:16 Urine Glucose (UA) Norm (Normal) 10/29/23 11:16 Urine Ketones Negative (Negative) 10/29/23 11:16 Urine Blood Neg (Negative) 10/29/23 11:16 Urine Nitrate Negative (Negative) 10/29/23 11:16 Urine Bilirubin Neg (Negative) 10/29/23 11:16 Urine Urobilinogen Norm mg/dL (Negative) 10/29/23 11:16 Ur Leukocyte Esterase Negative (Negative) 10/29/23 11:16 Urine RBC None /hpf (0-2) 10/29/23 11:16 Urine WBC Rare /hpf (0-5) 10/29/23 11:16 Ur Squamous Epith Cells 0-4 /hpf (0-5) H 10/29/23 11:16 Amorphous Sediment Not Reportable 10/29/23 11:16 Urine Bacteria None /hpf (NONE) 10/29/23 11:16 Urine Mucus 1+ /hpf 10/29/23 11:16 Discharge Plan Discharge Patient Disposition: Home Clinical Impression: Medication adverse effect Qualifiers: Encounter type: initial encounter Qualified Code(s): T50.905A - Adverse effect of unspecified drugs, medicaments and biological substances, initial encounter Condition: Stable Prescriptions: No Action estradiol 1 mg tablet 1 mg PO DAILY alprazolam 0.5 mg tablet 0.5 mg PO TID PRN (Reason: Anxiety) escitalopram oxalate 10 mg tablet 10 mg PO DAILY famotidine 20 mg tablet 20 mg PO DAILY acetaminophen-codeine 300-60 mg tablet See Rx Instructions .ROUTE .COMPLEX Rx Instructions: Take 1 to 2 tablets orally up to 5 times daily; hydralazine 10 mg tablet 10 mg PO BID isosorbide mononitrate 60 mg tablet extended release 24 hr 60 mg PO QAM losartan 100 mg tablet 100 mg PO DAILY ropinirole 4 mg tablet 2 mg PO QPM [place]stones with Extra Iron 18 mg iron Tablet,Chewable 1 tab PO DAILY Discharge Orders: Discharge ED (Routine); Ordered 10/29/23 Ordered By: Paddy Hagan Referrals: Lamar Weiner [Primary Care Provider] - Discharge Diet: Usual diet Discharge Activity: Increase activity as tolerated Patient Instructions: Hypotension (ED) Activity Restrictions/Additional Instructions: Half your dose of hydralazine from 10 mg to 5 mg by mouth twice a day. Follow- up with primary care to discuss this medication adjustment and for further evaluation. Please return if you have any new or concerning symptoms. Coding Level of Care Code ED Gis Physical Scientist for Camilo [facility]wood
[2023-10-29 10:43] LABS: Basophils # 0.1 10^3/uL (0.0-0.1); Basophils % 0.8 %; Eosinophils % 0.6 %; Hematocrit 35.9 % (36-47); Lymphocytes # 1.3 10^3/uL (0.8-4.8); Lymphocytes % 21.1 %; Mean Corpuscular HGB Conc 30.6 g/dL (30-55); Mean Corpuscular Hemoglobin 24.2 pg (27-33); Mean Corpuscular Volume 78.9 fl (85-98); Mean Platelet Volume 10.1 fL (7.4-10.4); Monocytes # 0.6 10^3/uL (0.2-0.9); Monocytes % 10.2 %; Neutrophils # 4.12 10^3/uL (1.8-7.7); Nucleated Red Blood Cells % 0 %; Platelet Count 244 10^3/cmm (157-399); Red Blood Count 4.55 10^6/uL (3.85-5.65); Red Cell Distribution Width 16.2 % (12.1-15.1); White Blood Count 6.16 10^3/uL (3.29-11.43)
[2023-10-29 11:03] LABS: INR 0.95 (0.8-1.2); Partial Thromboplastin Time 26.2 SECONDS (23.9-36.7)
[2023-10-29 11:07] VITALS: BP 137/61; PULSE 52; O2SAT 90
[2023-10-29 11:13] LABS: Alanine Aminotransferase 8 U/L (0-33); Alkaline Phosphatase 47 U/L (35-105); Anion Gap 13.3 (5-19); Aspartate Amino Transferase 12 U/L (0-32); Blood Urea Nitrogen 12 mg/dL (8-23); Calcium 9.1 mg/dL (8.5-10.5); Carbon Dioxide 26 mmol/L (22-29); Chloride 99 mmol/L (98-107); Globulin 2.6 g/dL (1.3-4.6); Glucose 117 mg/dL (65-115); Osmolality Calculated 279 mOsm/kg (285-295); Potassium 4.3 mmol/L (3.5-5.1); Sodium 134 mmol/L (136-145); Total Bilirubin 0.2 mg/dL (0.15-1.2); Total Protein 6.6 g/dL (6.6-8.7)
[2023-10-29 11:16] LABS: Troponin(5th) Baseline 12 ng/L (0-10)
[2023-10-29 11:51] VITALS: BP 127/60; BP 136/62; BP 143/63; PULSE 54; PULSE 55; PULSE 57
[2023-10-29 12:06] LABS: Add Urine Microscopic? YES; Bilirubin Urine Neg (Negative); Blood Urine Neg (Negative); Glucose Urine UA Norm (Normal); Ketones Urine Negative (Negative); Leukocyte Esterase Urine Negative (Negative); Nitrate Urine Negative (Negative); Protein Urine 1+ (Negative); Specific Gravity, Urine 1.015 (1.005-1.030); Urine Appearance Clear (CLEAR); Urine Color Yellow (Yellow); Urobilinogen Urine Norm (Negative); pH Urine 5 (5-7)
[2023-10-29 12:07] LABS: Add Urine Culture? No; Mucus Urine 1+ /hpf; Squamous Epithelial Cell Urine 0-4 /hpf (0-5); WBC Urine RARE /hpf (0-5)
[2023-10-29 12:59] VITALS: BP 137/61; PULSE 52; RESP 18; TEMP 36.8; O2SAT 90
== END 2023-10-29 13:00 | disposition home or self-care (01) ==
PROVIDERS: Emergency Provider Physician Assistant; PCP Nurse Practitioner Family
DX: R42 Dizziness and giddiness (principal); T46.5X5A Adverse effect of other antihypertensive drugs, initial encounter; R53.1 Weakness; I10 Essential (primary) hypertension
CPT/HCPCS: 70450; 71045; 80053; 81001; 84484; 85025; 85610; 85730; 93005; 99285

== ENCOUNTER 2023-12-04 21:45 | Emergency (ER) | payer MEDICARE, SELFPAY ==
[2023-12-04 21:47] VITALS: BP 133/56; PULSE 63; RESP 18; TEMP 36.6; O2SAT 97; BMI 26.4
--- NOTE | 2023-12-04 21:50 | ED_ITS ---
HPI - Abdominal Pain 2 General: Chief Complaint: Nausea/Vomiting/Diarrhea Stated Complaint: DIARRHEA Time Seen by Provider: 12/04/23 21:48 History of Present Illness: 67-year-old female comes in today for co mplaints of diarrhea x 4 days. Patient appears nontoxic. Patient reports that started on Wednesday night and has persisted until today. Patient has not been able to eat or drink until today. Patient reports no food but has a been able to hold down fluids today. Patient felt weak and felt that she needed to be evaluated in the ER and was brought in by EMS from [place]. Associated Symptoms: Reports diarrhea and nausea Review of Systems 2 General: Reports: 10 or more systems reviewed and unremarkable except in HPI and below GI: Reports: nausea and diarrhea [facility] ED 2 PFSH: Medical History (Updated 12/04/23 @ 23:35 by KAREN Nielsen) Hereditary hemochromatosis History of diverticulitis Osteoporosis Lactose intolerance due to acquired lactase deficiency Hypertension Gout GERD (gastroesophageal reflux disease) Fibromyalgia Degenerative arthritis Surgical History History of thumb surgery History of right hip replacement 10/03/2018 History of laminectomy History of hysterectomy History of cholecystectomy History of bladder surgery Bladder sling History of appendectomy Family History Other CAD (coronary artery disease) Cancer Dementia Hyperlipidemia Hypertension Stroke Denies family history of Diabetes Clotting disorder Psychiatric illness Chronic kidney disease (CKD) Suicide Anesthesia complication Bleeding disorder Lung disease Social History Smoking and tobacco/nicotine status: never used tobacco/nicotine Alcohol intake: never Female Reproductive History: Spontaneous abortions: No Physical Exam 2 Const: COMMON NORMALS: alert HENMT: COMMON NORMALS: normocephalic HEAD & SCALP: normocephalic Chest: COMMONS NORMALS: normal inspection of the chest Resp: COMMON NORMALS: normal respiratory effort Cardio: COMMON NORMALS: regular rate and regular rhythm RATE: regular rate RHYTHM: regular rhythm GI: COMMON NORMALS: Soft to palpation and non-tender PALPATION: Yes Soft to palpation : COMMON NORMALS: Yes no CVA tenderness BLADDER/KIDNEY EXAM: Yes no CVA tenderness Back/Pelvis: COMMON NORMALS: no CVA tenderness Extremity: COMMON NORMALS: normal to inspection Neuro: SENSORIUM/ORIENTATION: Yes alert Skin: COMMON NORMALS: turgor normal GENERAL SKIN EXAM: turgor normal Course 2 Vital Signs: Vital signs: Vital Signs Temperature 98 F 12/04/23 21:47 Pulse Rate 63 12/04/23 21:47 Respiratory Rate 18 12/04/23 21:47 Blood Pressure 133/56 12/04/23 21:47 Pulse Oximetry 97 12/04/23 21:47 Oxygen Delivery Me thod Room Air 12/04/23 21:47 MDM - Abdominal Pain Medical Decision Making Patient came in tonight due to persistent diarrhea x 4 days and increasing weakness. On exam abdomen soft nontender. Skin is warm and dry. Bowel sounds are active. Abdomen soft with some diffuse tenderness. Patient moves all extremities well. Patient ambulates without difficulty. Differential diagnosis includes but not limited to dehydration, gastroenteritis, diverticulitis, colitis, bowel obstruction. CBC noted some mild anemia with 11,000 hemoglobin. White blood cell count was 3.1. Sodium was 130. Lipase was normal. Liver enzymes are normal. CT of the abdomen suggested colitis versus diarrhea illness. Patient will be treated for colitis with Cipro and prednisone. Patient was given Lomotil to help with diarrhea stools. Encourage fluids and hydration with electrolyte solution such as Pedialyte. Recommend follow-up with primary care in 2 to 3 days for recheck. Return to ED for new concerns. Lab Data 12/04/23 22:09 12/04/23 22:09 Labs/Radiology: Radiology Impressions Abdomen/Pelvis CT 12/04/23 22:14 IMPRESSION: 1. There are air-fluid levels in the distal colon suggesting mild nonspecific colitis versus other diarrheal illness. 2. There are multiple undigested tablets in the stomach and proximal duodenum. 3. There is fluid in the distal esophagus consistent with reflux. Laboratory Results WBC 3.11 10^3/uL (3.29-11.43) L 12/04/23 22:09 RBC 4.40 10^6/uL (3.85-5.65) 12/04/23 22:09 Hgb 11.00 g/dL (11.27-16.99) L 12/04/23 22:09 Hct 33.6 % (36-47) L 12/04/23 22:09 MCV 76.4 fl (85-98) L 12/04/23 22:09 MCH 25.0 pg (27-33) L 12/04/23 22:09 MCHC 32.7 g/dL (30-55) 12/04/23 22:09 RDW 16.0 % (12.1-15.1) H 12/04/23 22:09 Plt Count 177 10^3/cmm (157-399) 12/04/23 22:09 MPV 10.3 fL (7.4-10.4) 12/04/23 22:09 Neut % (Auto) 48.6 % 12/04/23 22:09 Lymph % (Auto) 33.4 % 12/04/23 22:09 Greene % (Auto) 16.1 % 12/04/23 22:09 Eos % (Auto) 1.3 % 12/04/23 22:09 Baso % (Auto) 0.3 % 12/04/23 22:09 Neut # (Auto) 1.51 10^3/uL (1.8-7.7) L 12/04/23 22:09 Lymph # (Auto) 1.0 10^3/uL (0.8-4.8) 12/04/23 22:09 Greene # (Auto) 0.5 10^3/uL (0.2-0.9) 12/04/23 22:09 Eos # (Auto) 0.0 10^3/uL (0.0-0.8) 12/04/23 22:09 Baso # (Auto) 0.0 10^3/uL (0.0-0.1) 12/04/23 22:09 Nucleated RBC % (auto) 0 % 12/04/23 22:09 Nucleated RBCs # 0.0 /100WBC 12/04/23 22:09 Sodium 130 mmol/L (136-145) L 12/04/23 22:09 Potassium 3.6 mmol/L (3.5-5.1) 12/04/23 22:09 Chloride 100 mmol/L (98-107) 12/04/23 22:09 Carbon Dioxide 20 mmol/L (22-29) L 12/04/23 22:09 Anion Gap 13.6 (5-19) 12/04/23 22:09 BUN 9 mg/dL (8-23) 12/04/23 22:09 Creatinine 0.7 mg/dL (0.5-0.9) 12/04/23 22:09 GFR Calculation 83.0 mL/min (90-130) L 12/04/23 22:09 Glucose 92 mg/dL (65-115) 12/04/23 22:09 Calculated Osmolality 268 mOsm/kg (285-295) L 12/04/23 22:09 Calcium 8.3 mg/dL (8.5-10.5) L 12/04/23 22:09 Total Bilirubin 0.2 mg/dL (0.15-1.2) 12/04/23 22:09 AST 22 U/L (0-32) 12/04/23 22:09 ALT 27 U/L (0-33) 12/04/23 22:09 Alkaline Phosphatase 45 U/L (35-105) 12/04/23 22:09 Total Protein 6.6 g/dL (6.6-8.7) 12/04/23 22:09 Albumin 3.9 g/dL (3.5-5.2) 12/04/23 22:09 Globulin 2.7 g/dL (1.3-4.6) 12/04/23 22:09 Lipase 40 U/L (13-60) 12/04/23 22:09 All radiology interpretation(s) finalized by discharge Discharge Plan Discharge Patient Disposition: Home Clinical Impression: Colitis Condition: Stable Prescriptions: New Cipro 500 mg tablet 500 mg PO BID Qty: 10 0RF prednisone 20 mg tablet 20 mg PO BID 5 Days Qty: 10 0RF Lomotil 2.5-0.025 mg tablet 1 tab PO Q6H PRN (Reason: diarrhea) Qty: 10 0RF No Action estradiol 1 mg tablet 1 mg PO DAILY alprazolam 0.5 mg tablet 0.5 mg PO TID PRN (Reason: Anxiety) escitalopram oxalate 10 mg tablet 10 mg PO DAILY famotidine 20 mg tablet 20 mg PO DAILY acetaminophen-codeine 300-60 mg tablet See Rx Instructions .ROUTE .COMPLEX Rx Instructions: Take 1 to 2 tablets orally up to 5 times daily; hydralazine 10 mg tablet 10 mg PO BID isosorbide mononitrate 60 mg tablet extended release 24 hr 60 mg PO QAM losartan 100 mg tablet 100 mg PO DAILY ropinirole 4 mg tablet 2 mg PO QPM Flintstones with Extra Iron 18 mg iron Tablet,Chewable 1 tab PO DAILY Discharge Orders: Discharge ED (Routine); Ordered 12/04/23 Ordered By: Sreedhar Conner Referrals: Lamar Weiner [Primary Care Provider] - Discharge Diet: Usual diet Discharge Activity: Increase activity as tolerated Patient Instructions: Colitis (ED) Activity Restrictions/Additional Instructions: Take medications as directed. Use an electrolyte solution like Pedialyte to help replace electrolytes to maintain hydration. Use of Pedialyte or electrolyte solution until diarrhea subsides. Take antibiotics and steroids as directed twice a day for 5 days. Follow-up with primary care in 1 week for recheck. Return to ED for new concerns. 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
--- NOTE | 2023-12-04 22:14 | CTR_ITS ---
PROCEDURE INFORMATION: Exam: CT Abdomen And Pelvis Without Contrast Exam date and time: 12/04/2023 10:25 PM Age: 67 years old Clinical indication: Prior surgery; Surgery date: 6+ months; Surgery type: Gb. Appy. Hysterectomy. Lumbar fusion. Irvin. Patient HX: C/O diarrhea x 4 days; Additional info: Abd pain TECHNIQUE: Imaging protocol: Computed tomography of the abdomen and pelvis without contrast. Radiation optimization: All CT scans at this facility use at least one of these dose optimization techniques: automated exposure control; mA and/or kV adjustment per patient size (includes targeted exams where dose is matched to clinical indication); or iterative reconstruction. COMPARISON: CT abdomen pelvis w con* [id number] 12/04/2023 10:25 PM RADIATION DOSE METRICS: Total DLP (mGy-cm): 502.02 FINDINGS: Esophagus: There is fluid in the distal esophagus consistent with reflux. Liver: Normal. No mass. Gallbladder and bile ducts: The gallbladder has been removed. The gallbladder has been removed. Pancreas: Normal. No ductal dilation. Spleen: Normal. No splenomegaly. Adrenal glands: Normal. No mass. Kidneys and ureters: Normal. No hydronephrosis. Stomach and bowel: There are multiple undigested tablets in the stomach and proximal duodenum. There are air-fluid levels in the distal colon suggesting mild nonspecific colitis versus other diarrheal illness. Appendix: There has been an appendectomy. Intraperitoneal space: Unremarkable. No free air. No significant fluid collection. Vasculature: Unremarkable. No abdominal aortic aneurysm. Lymph nodes: Unremarkable. No enlarged lymph nodes. Urinary bladder: Unremarkable as visualized. Reproductive: The uterus is not visualized, consistent with hysterectomy. Bones/joints: Status post right total hip replacement. There are degenerative changes in the visualized spine. Postoperative changes are present in the lumbar spine. There has been arthrodesis across the right sacroiliac joint. Soft tissues: Unremarkable. CT/CT abdomen pelvis wo con [id number] IMPRESSION: 1. There are air-fluid levels in the distal colon suggesting mild nonspecific colitis versus other diarrheal illness. 2. There are multiple undigested tablets in the stomach and proximal duodenum. 3. There is fluid in the distal esophagus consistent with reflux.
[2023-12-04 22:15] LABS: Basophils % 0.3 %; Eosinophils % 1.3 %; Hematocrit 33.6 % (36-47); Lymphocytes % 33.4 %; Mean Corpuscular HGB Conc 32.7 g/dL (30-55); Mean Corpuscular Volume 76.4 fl (85-98); Mean Platelet Volume 10.3 fL (7.4-10.4); Monocytes # 0.5 10^3/uL (0.2-0.9); Monocytes % 16.1 %; Neutrophils # 1.51 10^3/uL (1.8-7.7); Neutrophils % 48.6 %; Nucleated Red Blood Cells % 0 %; Platelet Count 177 10^3/cmm (157-399); White Blood Count 3.11 10^3/uL (3.29-11.43)
--- NOTE | 2023-12-04 22:15 | PC.NURSE ---
EMS IV NOT FUNCTIONAL UPON ARRIVAL, IV ATTEMPT UNSUCCESSFUL AT TIME OF BLOOD DRAW. PT REFUSES FURTHER ATTEMPTS.
[2023-12-04] MEDS: diphenoxylate/atropine Tablet 2 TAB PO (22:16)
[2023-12-04 22:38] LABS: Alanine Aminotransferase 27 U/L (0-33); Albumin Level 3.9 g/dL (3.5-5.2); Alkaline Phosphatase 45 U/L (35-105); Anion Gap 13.6 (5-19); Aspartate Amino Transferase 22 U/L (0-32); Blood Urea Nitrogen 9 mg/dL (8-23); Calcium 8.3 mg/dL (8.5-10.5); Carbon Dioxide 20 mmol/L (22-29); Chloride 100 mmol/L (98-107); Creatinine Clr Calc Pharmacy 56.6632; Globulin 2.7 g/dL (1.3-4.6); Glucose 92 mg/dL (65-115); Lipase 40 U/L (13-60); Osmolality Calculated 268 mOsm/kg (285-295); Potassium 3.6 mmol/L (3.5-5.1); Sodium 130 mmol/L (136-145); Total Bilirubin 0.2 mg/dL (0.15-1.2); Total Protein 6.6 g/dL (6.6-8.7)
[2023-12-04] MEDS: ondansetron 4 MG Tablet PO (23:18)
--- NOTE | 2023-12-04 23:48 | PC.NURSE ---
DILUTED APPLE JUICE GIVEN FOR PO CHALLENGE
[2023-12-05] MEDS: ciprofloxacin 500 mg Tablet PO (00:15)
[2023-12-05] MEDS: predniSONE 20 mg Tablet PO (00:15)
[2023-12-05 00:27] VITALS: BP 135/61; PULSE 71; RESP 16; O2SAT 96
== END 2023-12-05 00:32 | disposition home or self-care (01) ==
PROVIDERS: Emergency Provider Nurse Practitioner Family; PCP Nurse Practitioner Family
DX: K52.9 Noninfective gastroenteritis and colitis, unspecified (principal); I10 Essential (primary) hypertension
CPT/HCPCS: 74176; 80053; 83690; 85025; 99284; J7512; Q0162

== ENCOUNTER 2024-02-10 10:47 | Oncology outpatient (recurring) (ONCR) | payer MEDICARE, SELFPAY | END 2024-02-19 23:59 | disposition home or self-care (01) | LOC: ONCMED 10:47 | PROVIDERS: PCP Nurse Practitioner Family; Visit Provider Internal Medicine Medical Oncology | DX: E83.110 Hereditary hemochromatosis (principal); Z79.899 Other long term (current) drug therapy | CPT/HCPCS: 99213 ==

== ENCOUNTER 2024-06-15 14:53 | Oncology outpatient (recurring) (ONCR) | payer MEDICARE, SELFPAY | END 2024-06-20 23:59 | disposition home or self-care (01) | PROVIDERS: PCP Nurse Practitioner Family; Visit Provider Internal Medicine Medical Oncology | DX: E83.110 Hereditary hemochromatosis (principal) | CPT/HCPCS: 99213 ==

== ENCOUNTER 2024-09-25 08:42 | Emergency (ER) | payer MEDICARE, SELFPAY ==
[2024-09-25 08:58] VITALS: BP 141/63; PULSE 71; RESP 17; TEMP 36.7; O2SAT 100; BMI 26.4
--- NOTE | 2024-09-25 11:03 | W.ED.EXTPRO ---
HPI - Extremity Problem General: Chief complaint: Extremity Problem,Nontraumatic Stated complaint: R leg pain and burning Time Seen by Provider: 09/25/24 08:48 Source: patient and family Mode of arrival: ambulatory Limitations: no limitations History of Present Illness: Patient is a pleasant 68-year-old female who presents today with right leg pain and burning. Patient has a spinal stimulator since January 2024 and notes that for the past month it seems to be causing symptoms in her right leg. She notes a burning sensation to the right inner thigh and pain in the right lower leg. Patient notes that she was recently able to get in with her provider who evaluated the spinal stimulator and they reprogrammed/adjusted amplitude-this did seem to help a little. Patient notes that when she turns off the spinal stimulator her pain improves but never full goes away. Patient is able to walk and bear weight. She is not complaining of any redness or color changes to the leg, no warmth, she does not complain of numbness/tingling/loss of sensation. Patient reports that she has been taking Tylenol and using topicals such as IcyHot. MD Complaint: extremity pain Onset (ago): month(s) Pain Consistency: constant Location: right and lower extremity Quality: burning and aching Radiation: none Relieving factors: nothing Exacerbating factors: other (use of spinal stimulator) Associated symptoms: Reports myalgias; Deny chest pain, fever(s) or rash Related Data Home Medications ?Medication ?Instructions ?Recorded ?Confirmed estradiol 1 mg tablet 1 mg PO DAILY 08/17/19 09/25/24 acetaminophen 300 mg-codeine 60 mg See Rx Instructions .Route .COMPLEX 01/14/22 09/25/24 tablet alprazolam 0.5 mg tablet 0.5 mg PO TID PRN Anxiety 11/22/22 09/25/24 hydralazine 10 mg tablet 10 mg PO DAILY 10/29/23 09/25/24 isosorbide mononitrate 60 mg 60 mg PO QAM 10/29/23 09/25/24 tablet,extended release 24 hr losartan 100 mg tablet 100 mg PO DAILY 10/29/23 09/25/24 ropinirole 4 mg tablet 2 mg PO QPM 10/29/23 09/25/24 esomeprazole magnesium 40 mg 40 mg PO DAILY 02/10/24 09/25/24 capsule,delayed release aspirin 81 mg tablet,delayed 81 mg PO DAILY 06/15/24 09/25/24 release (Adult Low Dose Aspirin) cholecalciferol (vitamin D3) 125 125 mcg PO DAILY 06/15/24 09/25/24 mcg (5,000 unit) capsule magnesium oxide 500 mg capsule 800 mg PO TID 06/15/24 09/25/24 simvastatin 40 mg tablet 40 mg PO DAILY 06/15/24 09/25/24 duloxetine 20 mg capsule,delayed 20 mg PO DAILY 09/25/24 09/25/24 release Allergies Allergy/AdvReac Type Severity Reaction Status Date / Time morphine Allergy Intermediate rash Verified 06/15/24 15:11 Penicillins Allergy ADR-Confusi Verified 06/15/24 15:11 on Review of Systems Const: Denies: fever(s), chills or night sweats Card: Denies: chest pain, palpitations, edema or swelling of feet/ankles Resp: Denies: dyspnea GI: Denies: abdominal pain, nausea or vomiting Musc: Reports: back pain and extremity pain; Denies: extremity swelling, joint pain, joint swelling, joint redness, joint warmth, joint stiffness, limited range of motion, muscle cramps or muscle weakness Skin/Breast: Denies: rash Neuro: Denies: headache(s), numbness in extremities, weakness in extremities, sensory changes or difficulty walking PFSH ED PFSH: Medical History Hereditary hemochromatosis History of diverticulitis Osteoporosis Lactose intolerance due to acquired lactase deficiency Hypertension Gout GERD (gastroesophageal reflux disease) Fibromyalgia Degenerative arthritis Surgical History History of thumb surgery History of right hip replacement 10/03/2018 History of laminectomy History of hysterectomy History of cholecystectomy History of bladder surgery Bladder sling History of appendectomy Family History Other CAD (coronary artery disease) Cancer Dementia Hyperlipidemia Hypertension Stroke Denies family history of Diabetes Clotting disorder Psychiatric illness Chronic kidney disease (CKD) Suicide Anesthesia complication Bleeding disorder Lung disease Social History Smoking and tobacco/nicotine status: unknown if used tobacco/nicotine Alcohol intake: never Female Reproductive History: Spontaneous abortions: No Physical Exam Const: COMMON NORMALS: no acute distress, average body habitus, patient oriented x3, no limitations, healthy appearing, alert and well nourished GENERAL APPEARANCE: cooperative Resp: COMMON NORMALS: normal respiratory effort and clear to auscultation bilaterally AUSCULTATION: clear to auscultation bilaterally Cardio: COMMON NORMALS: regular rate and regular rhythm RATE: regular rate RHYTHM: regular rhythm Back/Pelvis: COMMON NORMALS: thoracic and lumbar spine normal to inspection, no thoracic nor lumbar tenderness, thoraco-lumbar ROM normal and straight leg raise negative bilaterally Extremity: COMMON NORMALS: full ROM, capillary refill normal, no joint enlargement, no clubbing, cyanosis or edema, no calf tenderness and no pedal edema GENERAL: Yes normal exam except as noted RIGHT LOWER EXTREMITY: Yes upper leg and Yes lower leg OTHER: R LE NV intact, full ROM, no color/temp changes noted; no edema/no calf pain; complains of burning to medial thigh and a possible knot to R lower medial leg Neuro: COMMON NORMALS: patient oriented x3, moves all extremities, no focal motor deficits and no sensory deficits noted SENSORIUM/ORIENTATION: Yes alert Course Vital Signs: Vital signs: Vital Signs Temperature 98.1 F 09/25/24 08:58 Pulse Rate 71 09/25/24 11:35 Respiratory Rate 17 09/25/24 08:58 Blood Pressure 141/63 09/25/24 08:58 Pulse Oximetry 99 09/25/24 11:35 Oxygen Delivery Me thod Room Air 09/25/24 11:35 MDM - Extremity (Nontraumatic) Medical Decision Making US negative for DVT. Thoracic XR obtained and her leads appear to be intact. Recommend she follow-up with her back specialist in [place]. She can also follow-up with primary care here in [facility]. Medical Records I reviewed the patient's medical records. Lab Data Radiology Impressions Thoracic Spine X-Ray 09/25/24 11:16 IMPRESSION: 1. Moderate degenerative changes and mild scoliosis. No fracture. 2. Neurostimulator leads in the spinal canal at about the T7 level. The leads appear to be intact. All radiology interpretation(s) finalized by discharge Discharge Plan Discharge Patient Disposition: Home Clinical Impression: Acute pain of right lower extremity Condition: Stable Prescriptions: No Action estradiol 1 mg tablet 1 mg PO DAILY alprazolam 0.5 mg tablet 0.5 mg PO TID PRN (Reason: Anxiety) esomeprazole magnesium 40 mg capsule,delayed release(DR/EC) 40 mg PO DAILY simvastatin 40 mg tablet 40 mg PO DAILY Patient Comments: 1/2 every other day aspirin [Adult Low Dose Aspirin] 81 mg tablet,delayed release (DR/EC) 81 mg PO DAILY cholecalciferol (vitamin D3) 125 mcg (5,000 unit) capsule 125 mcg PO DAILY magnesium oxide 500 mg capsule 800 mg PO TID acetaminophen-codeine 300-60 mg tablet See Rx Instructions .ROUTE .COMPLEX Rx Instructions: Take 1 to 2 tablets orally up to 5 times daily as needed for pain. hydralazine 10 mg tablet 10 mg PO DAILY isosorbide mononitrate 60 mg tablet extended release 24 hr 60 mg PO QAM losartan 100 mg tablet 100 mg PO DAILY ropinirole 4 mg tablet 2 mg PO QPM duloxetine 20 mg capsule,delayed release(DR/EC) 20 mg PO DAILY Discharge Orders: Discharge ED (Routine); Ordered 09/25/24 Ordered By: Homa Sibley Referrals: Lamar Weiner [Primary Care Provider] - Activity Restrictions/Additional Instructions: As we discussed, your ultrasound today did not show any evidence of a DVT/blood clot. X-rays of your thoracic spine showed that your spinal cord stimulator leads were intact. I would like you to follow-up with your back specialist in [place] for further evaluation of symptoms. 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
--- NOTE | 2024-09-25 11:16 | XR_ITS ---
WS: [id number] Exam: XR thoracic spine 3V* [id number] Date/Time of Exam: 09/25/2024 11:34 AM Reason For Exam: eval for back stimulator lead placement No fracture or malalignment. Degenerative disc change and spondylosis at all levels. Mild dextroscoliosis. Neurostimulator leads are noted in the thoracic spinal canal ending at about the level of T7. The leads appear to be intact. Paraspinal soft tissues are unremarkable. XR/XR thoracic spine 3V* [id number] IMPRESSION: 1. Moderate degenerative changes and mild scoliosis. No fracture. 2. Neurostimulator leads in the spinal canal at about the T7 level. The leads a ppear to be intact.
--- NOTE | 2024-09-25 11:16 | USCV_ITS ---
Soumya Freed Age: 68 Gender: F : 1955 Exam Date: 09/25/2024 11:58 Ordering Phys: Homa Sibley Technologist: RAMIRO Exam Location: [facility] [place] Indication: RT LE PAIN, KNOT ON E[place]ENBERG HISTORY: Lower extremity pain. PROCEDURES: Venous duplex imaging was performed in only the right lower extremity. The following venous structures were evaluated: common femoral vein, profunda vein, proximal portion of the greater saphenous vein, superficial femoral vein, and the popliteal vein. In addition, the posterior tibial and peroneal trunk were evaluated. Serial compression, augmentation maneuvers, and spectral Doppler flow evaluation were performed. FINDINGS: No evidence of DVT seen in any vessel visualized at this time. CONCLUSIONS No evidence of right lower extremity DVT. Jorge Betancourt MD (Electronically Signed) Final Date: 25 September 2024 12:23 S
[2024-09-25 11:35] VITALS: PULSE 71; O2SAT 99
[2024-09-25 12:46] VITALS: BP 138/91; PULSE 71; O2SAT 99
== END 2024-09-25 12:47 | disposition home or self-care (01) ==
PROVIDERS: Emergency Provider Physician Assistant; PCP Nurse Practitioner Family
DX: M79.604 Pain in right leg (principal); Z79.82 Long term (current) use of aspirin; I10 Essential (primary) hypertension
CPT/HCPCS: 72072; 93971; 99284